=== PATIENT | female | born 1965 | race African-American/Black ===

== ENCOUNTER 2020-06-28 00:50 | IRF | payer OTHER, SELFPAY ==
[2020-06-28] VITALS (7 sets, daily range): BP systolic 109–143; BP diastolic 47–82; PULSE 72–84; RESP 16–20; TEMP 36.3–37.2; O2SAT 96–100; BMI 36.8
--- NOTE | ~2020-06-28 | CT_ITS ---
EXAMINATION: CT thoracic spine wo con DATE: 07/03/2020 19:14 INDICATION: Back pain after fall. TECHNIQUE: Computed tomography (CT) of the thoracic spine was performed without intravenous contrast. The dose-length product was 1200.52 mGy-cm. Automated exposure control and iterative reconstruction technique were employed. COMPARISON: None FINDINGS: Normal thoracic alignment. Mild thoracic spondylosis. No acute fracture, subluxation or dis location. Visualized lung parenchyma is unremarkable. No paraspinal soft tissue abnormality. Elevated right diaphragm. IMPRESSION: 1. No acute abnormality of the thoracic spine. Reviewed, dictated and finalized at location A.
--- NOTE | ~2020-06-28 | CT_ITS ---
EXAMINATION: CT brain wo con DATE: 07/03/2020 08:09 INDICATION: Headache. TECHNIQUE: Computed tomography (CT) of the head was performed without intravenous contrast. The mA wa s adjusted according to patient size. Iterative reconstruction technique was employed. The dose-lengt h product was 605.33 mGy-cm. COMPARISON: None FINDINGS: There is an old infarct in right caudate nucleus. There is an infarct in superior left cere bellum. There are scattered areas of low attenuation in the cerebral white matter. There is no intrac ranial hemorrhage or abnormal mass lesion. The ventricles are normal in size. There is mild mucosal t hickening in the ethmoid sinuses. The orbits are normal. The mastoid air cells are normal. IMPRESSION: 1. Age-indeterminate infarct in superior left cerebellum. 2. Old infarct in right caudate nucleus. 3. Moderate nonspecific cerebral white matter disease, which likely represents chronic small vessel i schemic disease. Reviewed, dictated and finalized at location B. IMPRESSION: 1. Age-indeterminate infarct in superior left cerebellum. 2. Old infarct in right caudate nucleus. 3. Moderate nonspecific cerebral white matter disease, which likely represents chronic small vessel ischemic disease.
--- NOTE | 2020-06-28 01:21 | ADMGEN ---
This patient, Elizabeth De La Rosa, was admitted to [facility] Room 221-02. Patient/family oriented to hospital policies and general routines including ID bracelet, bed and alarms, visiting hours, pain management, procedures, bathroom and other care routines, personal items, smoking policy, room service/diet, and visiting hours. Valuables list has been completed. Information on how to activate the Rapid Response Team has been discussed. Patient/Family are encouraged to report perceived risks to care and to ask questions if they do not understand what they are told or what they should do.
[2020-06-28 06:45] LABS: Glucose Point of Care 246 (65-105)
[2020-06-28] MEDS: POTASSIUM CHLORIDE 10 MEQ TABLET.ER PO (07:50)
[2020-06-28] MEDS: amLODIPine BESYLATE 5 MG TABLET 10 MG PO (07:50)
[2020-06-28] MEDS: ASPIRIN 325 MG ENTERIC TABLET PO (07:51)
[2020-06-28] MEDS: carvediloL 6.25 MG TABLET PO ×2 (07:51→21:07)
[2020-06-28] MEDS: CHLORTHALIDONE 25 MG TABLET PO (07:52)
[2020-06-28] MEDS: lisinopriL 10 MG TABLET PO ×2 (07:52→16:50)
[2020-06-28] MEDS: MAGNESIUM OXIDE 400 MG TABLET PO (07:52)
[2020-06-28] MEDS: FLUoxetine HCL 20 MG CAPSULE PO (07:52)
[2020-06-28] MEDS: INSULIN ASPART (*BKC) 100 UNITS/ML 10 UNITS SUB-Q ×3 (07:54→16:56)
[2020-06-28 08:06] LABS: Basophils Percent Auto 0.5 % (0.2-1.2); Eosinophils Absolute Auto 0.1 K/mm3 (0-0.3); Eosinophils Percent Auto 1.5 % (0-4.4); Hematocrit 42.7 % (37.0-47.0); Hemoglobin 14.3 g/dL (12.0-15.0); Immature Granulocyte Absolute 0.02 K/mm3 (0.00-0.031); Immature Granulocyte Percent A 0.2 % (0-0.5); Lymphocytes Absolute Auto 2.44 K/mm3 (0.9-3.2); Lymphocytes Percent Auto 27.6 % (18.3-44.2); Mean Corpuscular HGB Conc 33.5 g/dl (32-36); Mean Corpuscular Hemoglobin 27.1 pg (26-34); Mean Corpuscular Volume 80.9 fl (80-100); Mean Platelet Volume 10.7 fl (7.4-10.4); Monocytes Absolute Auto 1.1 K/mm3 (0.1-0.6); Monocytes Percent Auto 11.9 % (2.6-8.5); Neutrophils Absolute Auto 5.2 K/mm3 (1.3-6.7); Neutrophils Percent Auto 58.3 % (45.5-73.1); Platelet Count Result 341 k/mm3 (150-375); Red Blood Count 5.28 M/mm3 (4.2-5.4); Red Cell Distribution Width 13.6 % (11.5-14.5); White Blood Count 8.8 K/mm3 (4.5-10.0)
[2020-06-28 08:42] LABS: Anion Gap 8 mmol/L (8-16); Blood Urea Nitrogen 16 mg/dL (7-17); Calcium 9.1 mg/dL (8.4-10.2); Carbon Dioxide 30 mmol/L (22-30); Chloride 96 mmol/L (98-107); Cholesterol 194 mg/dL (0-200); Estimated CRCL calculation 115 ml/min; Estimated Glomerular Filt Rate > 60; Glucose 255 mg/dL (65-105); HDL Direct 40 mg/dL; Potassium 3.2 mmol/L (3.4-5.0); Sodium 134 mmol/L (137-145); Triglycerides 138 mg/dL (<150)
[2020-06-28 08:56] LABS: LDL Cholesterol Direct 118 mg/dL
[2020-06-28 09:22] LABS: Hemoglobin A1C 9.3 % (<5.7)
--- NOTE | 2020-06-28 12:30 | WPDREHABHP ---
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 The patient is a 54-year-old right-handed woman with a past medical history of hypertension, hyperlipidemia, and stroke along with migraine headaches which who presented to [facility] June 23, 2020 with persistent dizziness nausea and generalized weakness. The patient reported developing extreme dizziness at around 1:30 a.m. in the morning. She went back to sleep well later woke up and was unable to tolerate oral medication and ended up with an episode of emesis. Her symptoms not improve and EMS was called. EMS reported a blood pressure of 20 30/110. Rather 230 / 110. MRI of the brain demonstrated nonhemorrhagic a large left superior cerebellar artery distribution acute /recent infarction. No significant mass effect on the 4th ventricle, small right parietal acute /recent nonhemorrhagic infarction and subacute to early chronic right frontal periventricular small infarction. Neurology was consulted the recommended JUANA and 30 day event monitor upon discharge to continue aspirin and statin. JUANA showed an ejection fraction of 55 to 60% with no thrombus, shunt or cardiac source of embolism. The patient is continue the aspirin atorvastatin as well as oral antihypertensive. Physical examination conditions reveal impaired balance decreased gross motor control decreased safety awareness and the bilateral weakness. The patient passed her swallowing study and is on regular consistency diet. The hospitalization was significant for hypertensive crisis, stroke, hypertensive encephalopathy, vertigo, and hyperglycemia. She is currently awake and alert x3 and mental status has improved as per not only the patient but also the present at the time the interview The patient has not traveled to an area of pandemic of COVID she has not been sick she does not have any upper LEs by ismael symptoms to suggest even remote possibility of having had COVID-19 Therapy was initiated at the acute care facility and the patient transferred to us from [facility] on June 27, 2020 on FALLS OR SURGERIES: The patient has had no major surgeries in the 100 days prior to admission. They had no falls in the past year. They had no falls with injury in the past year. PAST MEDICAL HISTORY: allergic rhinitis, hay fever, hyperlipidemia, hypertension, endometriosis, CVA, headaches, migraine type headaches, anemia, diabetes mellitus and obesity PAST SURGICAL HISTORY: a D&C in 2007 SOCIAL HISTORY: patient is and the of long time is present at the time of the interview. The patient works at a home. Used to work for the [employer] and has retired from there. The patient imbibes alcohol only occasionally. Patient is a nonsmoker. She lives with her in a 2 story home with 2 steps to enter. The bedroom / bathroom or on the 2nd level with approximately 13 steps to the 2nd floor level. The patient was completely independent prior with no assistive device and works full-time in a home. The patient is available to assist her following rehab if necessary. FAMILY HISTORY: Multiple first-degree relatives with heart disease and hypertension PRIOR LEVEL OF FUNCTION: Eating was INDEPENDENT Oral Care was INDEPENDENT Toileting Hygiene was INDEPENDENT Shower/Bathing was INDEPENDENT Upper Body Dressing was INDEPENDENT Lower Body Dressing was INDEPENDENT Donning/Olga Footwear was INDEPENDENT Rolling Left and Right was INDEPENDENT Sit to Lying was INDEPENDENT
[2020-06-28 12:33] LABS: Glucose Point of Care 334 (65-105)
[2020-06-28] MEDS: INSULIN GLARGINE (*BKC) 100 UNITS/ML 35 UNITS SUB-Q (18:09)
[2020-06-28 18:16] LABS: Glucose Point of Care 333 (65-105)
[2020-06-28] MEDS: ATORVASTATIN 40 MG TABLET PO (21:08)
[2020-06-28 21:46] LABS: Glucose Point of Care 241 (65-105)
[2020-06-29 06:00] VITALS: BP 109/52; PULSE 81; RESP 20; TEMP 37; O2SAT 100
[2020-06-29 06:30] LABS: Glucose Point of Care 240 (65-105)
[2020-06-29] MEDS: POTASSIUM CHLORIDE 10 MEQ TABLET.ER PO (08:45)
[2020-06-29] MEDS: ASPIRIN 325 MG ENTERIC TABLET PO (08:46)
[2020-06-29] MEDS: lisinopriL 10 MG TABLET PO ×2 (08:46→18:25)
[2020-06-29] MEDS: CHLORTHALIDONE 25 MG TABLET PO (08:46)
[2020-06-29] MEDS: FLUoxetine HCL 20 MG CAPSULE PO (08:46)
[2020-06-29] MEDS: MAGNESIUM OXIDE 400 MG TABLET PO (08:46)
[2020-06-29 08:47] VITALS: PULSE 92
[2020-06-29] MEDS: carvediloL 6.25 MG TABLET PO ×2 (08:47→21:02)
[2020-06-29] MEDS: amLODIPine BESYLATE 5 MG TABLET 10 MG PO (08:47)
[2020-06-29] MEDS: INSULIN ASPART (*BKC) 100 UNITS/ML 10 UNITS SUB-Q ×3 (08:48→18:24)
[2020-06-29 12:35] LABS: Glucose Point of Care 247 (65-105)
[2020-06-29 14:00] VITALS: BP 127/64; PULSE 84; RESP 20; TEMP 37; O2SAT 100
--- NOTE | 2020-06-29 17:46 | WPDNEURORHBP ---
Subjective Date/time seen: 06/29/20 17:46 Interval history: this 54-year-old woman is here with the large left cerebellar stroke along with the other stroke bilaterally she is improving overall denies any headache nausea vomiting chest pain shortness of breath fever chills sore throat Patient's initial lab revealed relatively low potassium at 3.2 she is on potassium supplementation will check her BMP tomorrow also and potassium is still low we will increase the potassium supplementation patient's Accu-Cheks are running high up to over 200s and upper 200s Review of Systems Review of Systems: All systems reviewed & are unremarkable except as noted in HPI and below Functional Status Ambulation Ability Ability to Ambulate 10 Feet: Moderate Assistance X 1 Ambulation Assistive Devices: Walker, Wheeled Exam Const: General: comfortable and no acute distress HENMT: General nose exam: Normal nares present Mouth: Yes moist mucous membranes Eyes: General: appearance normal, both eyes and all related structures Neck: Neck: supple and no JVD Resp: Effort & Inspection: normal respiratory effort Auscultation: clear to auscultation bilaterally Cardio: Rate: regular rate Rhythm: regular rhythm GI: GI Palp: Yes Soft to palpation Auscultation: normal bowel sounds Skin: General skin exam: normal color and no rashes or lesions noted Neuro: Other: patient is awake alert well oriented with relatively slower speech but able to follow all commands well improving overall not any distress making progress Extrem: General: normal to inspection Psych: Mental Status: mental status grossly normal Objective Data Vital Signs Vital Signs: Vital Signs - 24 hr 06/28/20 20:35 06/28/20 21:07 06/28/20 22:00 Temperature 37.2 C Pulse Rate 84 80 84 Respiratory Rate 20 20 Blood Pressure 143/82 H Pulse Oximetry 96 96 06/29/20 06:00 06/29/20 08:47 06/29/20 14:00 Temperature 37.0 C 37.0 C Pulse Rate 81 92 84 Respiratory Rate 20 20 Blood Pressure 109/52 L 127/64 Pulse Oximetry 100 100 Intake/Output Intake/Output: Intake & Output 06/26/20 06/27/20 06/28/20 06/29/20 23:59 23:59 23:59 23:59 Intake Total 680 480 Balance 680 480 Meds/Results Medications: Active Medications Generic Name Dose Route Start Last Admin Trade Name Freq PRN Reason Stop Dose Admin Acetaminophen 650 mg 06/28/20 02:11 Tylenol Tablet PO Q6H PRN Mild Pain (Scale Score 1-4) Amlodipine Besylate 10 mg 06/28/20 09:00 06/29/20 08:47 Norvasc PO 10 mg DAILY FELIPE Administration Aspirin 325 mg 06/28/20 09:00 06/29/20 08:46 Aspirin Ec PO 325 mg DAILY FELIPE Administration Atorvastatin Calcium 40 mg 06/28/20 21:00 06/28/20 21:08 Lipitor PO 40 mg HS FELIPE Administration Carvedilol 6.25 mg 06/28/20 09:00 06/29/20 08:47 Coreg PO 6.25 mg Q12HR FELIPE Administration Chlorthalidone 25 mg 06/28/20 09:00 06/29/20 08:46 Hygroton PO 25 mg DAILY FELIPE Administration Dextrose 12.5 gm 06/28/20 02:14 Dextrose 50% Syringe IV PUSH PRN PRN Hypoglycemia Protocol Fluoxetine HCl 20 mg 06/28/20 09:00 06/29/20 08:46 Prozac PO 20 mg DAILY FELIPE Administration Glucagon 1 mg 06/28/20 02:14 Glucagon For Inj IM PRN PRN Hypoglycemia Protocol Glucose 15 gm 06/28/20 02:14 Glutose 15 PO PRN PRN Hypoglycemia Protocol Hydralazine HCl 25 mg 06/28/20 02:11 Apresoline Tablet PO Q6H PRN Hypertension Dextrose 1,000 mls @ 100 mls/hr 06/28/20 02:14 Dextrose 5% 1,000 Ml IVPB PRN PRN Hypoglycemia Protocol Insulin Aspart 10 units 06/28/20 08:00 06/29/20 12:18 Novolog SUB-Q 10 units TIDWM FELIPE Administration Insulin Glargine 35 units 06/28/20 18:00 06/28/20 18:09 Lantus SUB-Q 35 units QPM FELIPE Administration Lisinopril 10 mg 06/28/20 09:00 06/29/20 08:46 Prinivil PO 10 mg BID
[2020-06-29] MEDS: INSULIN GLARGINE (*BKC) 100 UNITS/ML 40 UNITS SUB-Q (18:24)
[2020-06-29 18:45] LABS: Glucose Point of Care 405 (65-105)
[2020-06-29 21:02] VITALS: PULSE 80
[2020-06-29] MEDS: ATORVASTATIN 40 MG TABLET PO (21:03)
[2020-06-29 22:00] VITALS: BP 138/67; PULSE 82; RESP 18; TEMP 37; O2SAT 100
[2020-06-29 22:31] LABS: Glucose Point of Care 298 (65-105)
[2020-06-30 05:12] LABS: Anion Gap 7 mmol/L (8-16); Blood Urea Nitrogen 17 mg/dL (7-17); Carbon Dioxide 31 mmol/L (22-30); Chloride 96 mmol/L (98-107); Estimated CRCL calculation 115 ml/min; Estimated Glomerular Filt Rate > 60; Glucose 253 mg/dL (65-105); Potassium 3.2 mmol/L (3.4-5.0); Sodium 134 mmol/L (137-145)
[2020-06-30 06:00] VITALS: BP 141/81; PULSE 81; RESP 18; TEMP 36.5; O2SAT 98
[2020-06-30 06:51] LABS: Glucose Point of Care 253 (65-105)
[2020-06-30] MEDS: INSULIN ASPART (*BKC) 100 UNITS/ML 10 UNITS SUB-Q ×3 (09:35→17:04)
[2020-06-30] MEDS: amLODIPine BESYLATE 5 MG TABLET 10 MG PO (09:37)
[2020-06-30] MEDS: POTASSIUM CHLORIDE 10 MEQ TABLET.ER PO (09:37)
[2020-06-30 09:38] VITALS: PULSE 82
[2020-06-30] MEDS: FLUoxetine HCL 20 MG CAPSULE PO (09:38)
[2020-06-30] MEDS: lisinopriL 10 MG TABLET PO ×2 (09:38→17:03)
[2020-06-30] MEDS: carvediloL 6.25 MG TABLET PO ×2 (09:38→20:29)
[2020-06-30] MEDS: CHLORTHALIDONE 25 MG TABLET PO (09:38)
[2020-06-30] MEDS: ASPIRIN 325 MG ENTERIC TABLET PO (09:38)
[2020-06-30] MEDS: MAGNESIUM OXIDE 400 MG TABLET PO (09:38)
--- NOTE | 2020-06-30 10:07 | RPD ---
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 Comorbidities include hypertensive crisis, hyperlipidemia, vertigo, impaired balance, diabetes mellitus with hyperglycemia. The complexity of the patient's medical management, nursing, and therapy needs require an inpatient rehab hospital stay with a physician-led interdisciplinary team approach. The patient?s needs will be best met in an intensive program vs. at a lower level of care. The patient requires physician services for neurology services, medical oversight, and coordination of care. The patient needs physician monitoring and treatment of uncontrolled hypertension, diabetes mellitus with hyperglycemia, monitoring for adverse reactions to new medications, monitoring for infection, and pain control. The patient requires nursing services for frequent neuro checks, anticoagulation therapy, medication management and education, pressure relief and skin care management, monitoring of labs, diabetes management and education, and fall/safety precautions. Deficits include:ADLs, Balance, Endurance, Family Training/Education, Mobility, Pain Management, ROM, Safety, Strength, and Transfers Supervisor [employer]/Case Management for: Discharge Planning and Patient/Family Counseling Physical Therapy: 5 days per week for 75 minutes. Treatments may include: Therapeutic Exercise, Gait Training, Neuromuscular Re-education, Transfer Training, Community Reintegration, Bed Mobility, Patient/Family Education, Wheelchair Mobility Group Therapy/Concurrent Therapy Rationales: -Improve attention span during functional activities in a distracted environment. -Enhance problem solving and/or adequate judgment skills during functional activities in a distracted environment. -Promote increased safety awareness in a distracted environment to reduce fall risk with functional tasks, transfers, and ambulation to allow a more safe, self-sufficient return to the home environment. -Improve dynamic balance skills to promote safety and independence with functional activities in a distracted environment for maximum gain. Occupational Therapy: 5 days per week for 75 minutes. Treatments may include: Therapeutic Exercise, Therapeutic Activity, Cognitive Training, Self-Care Transfer Training, Community Reintegration, Home Management, Patient/Family Education, Wheelchair Mobility Training, Energy Conservation Training Group Therapy/Concurrent Therapy Rationales: -Allow therapist to observe and teach generalization and carry-over of skills learned in individual therapy. -Enhance problem solving and sequencing skills during therapeutic activities in a distracted environment. -Promote increased safety awareness in a realistic setting to reduce fall risk with functional tasks due to visual and verbal distractions. -Increase functional level with ADLs, ADL transfers and use of adaptive equipment through therapeutic activities with others while promoting safety to allow a more safe, self-sufficient return home. Speech Therapy: 5 days per week for 30 minutes. Treatments may include: Dysphasia Therapy, Speech/Language/Communication Therapy, Cognitive Training, Patient/Family Education Group Therapy/Concurrent Therapy - Rationale: -Allow therapist to observe and teach generalization and carry-over of skills learned in individual therapy. -Improve comprehension skills with complex or abstract ideas through discussion in a realistic setting. -Enhance problem solving skills with complex issues during activities in a distracted environment. -Promote increased memory skills and concentration in a distracted environment for a safe transition home. -Improve attention and focus with language/communication skills in a realistic and supportive therapeutic setting. -Allow for practice of e
--- NOTE | 2020-06-30 10:24 | WPDNEURORHBP ---
Subjective Date/time seen: 06/30/20 52 years old lady admitted with left cerebellar stroke along with the hemispherical stroke bilaterally has no specific complaints 10:24 BMP results at this stage not available Review of Systems Review of Systems: All systems reviewed & are unremarkable except as noted in HPI and below Functional Status Ambulation Ability Ability to Ambulate 10 Feet: Moderate Assistance X 1 Ambulation Assistive Devices: Walker, Wheeled Exam Narrative: Exam Narrative: examination reveals her to be awake alert cooperative head normocephalic ears nose throat examination normal neck is supple with no cervical bruits or thyromegaly no lymphadenopathy heart regular with no murmur lungs clear to auscultation no rhonchi or crepitation abdomen soft normal bowel sounds extremities normal neurological is she is awake alert somewhat slow speech but follows all the commands and no other deficit Objective Data Vital Signs Vital Signs: Vital Signs - 24 hr 06/29/20 14:00 06/29/20 21:02 06/29/20 22:00 Temperature 37.0 C 37.0 C Pulse Rate 84 80 82 Respiratory Rate 20 18 Blood Pressure 127/64 138/67 Pulse Oximetry 100 100 06/30/20 06:00 06/30/20 09:38 Temperature 36.5 C Pulse Rate 81 82 Respiratory Rate 18 Blood Pressure 141/81 H Pulse Oximetry 98 Intake/Output Intake/Output: Intake & Output 06/27/20 06/28/20 06/29/20 06/30/20 23:59 23:59 23:59 23:59 Intake Total 680 720 240 Balance 680 720 240 Meds/Results Medications: Active Medications Generic Name Dose Route Start Last Admin Trade Name Natanaelq PRN Reason Stop Dose Admin Acetaminophen 650 mg 06/28/20 02:11 Tylenol Tablet PO Q6H PRN Mild Pain (Scale Score 1-4) Amlodipine Besylate 10 mg 06/28/20 09:00 06/30/20 09:37 Norvasc PO 10 mg DAILY FELIPE Administration Aspirin 325 mg 06/28/20 09:00 06/30/20 09:38 Aspirin Ec PO 325 mg DAILY FELIPE Administration Atorvastatin Calcium 40 mg 06/28/20 21:00 06/29/20 21:03 Lipitor PO 40 mg HS FELIPE Administration Carvedilol 6.25 mg 06/28/20 09:00 06/30/20 09:38 Coreg PO 6.25 mg Q12HR FELIPE Administration Chlorthalidone 25 mg 06/28/20 09:00 06/30/20 09:38 Hygroton PO 25 mg DAILY FELIPE Administration Dextrose 12.5 gm 06/28/20 02:14 Dextrose 50% Syringe IV PUSH PRN PRN Hypoglycemia Protocol Fluoxetine HCl 20 mg 06/28/20 09:00 06/30/20 09:38 Prozac PO 20 mg DAILY FELIPE Administration Glucagon 1 mg 06/28/20 02:14 Glucagon For Inj IM PRN PRN Hypoglycemia Protocol Glucose 15 gm 06/28/20 02:14 Glutose 15 PO PRN PRN Hypoglycemia Protocol Hydralazine HCl 25 mg 06/28/20 02:11 Apresoline Tablet PO Q6H PRN Hypertension Dextrose 1,000 mls @ 100 mls/hr 06/28/20 02:14 Dextrose 5% 1,000 Ml IVPB PRN PRN Hypoglycemia Protocol Insulin Aspart 10 units 06/28/20 08:00 06/30/20 09:35 Novolog SUB-Q 10 units TIDWM FELIPE Administration Insulin Glargine 40 units 06/29/20 18:00 06/29/20 18:24 Lantus SUB-Q 40 units QPM FELIPE Administration Lisinopril 10 mg 06/28/20 09:00 06/30/20 09:38 Prinivil PO 10 mg BID FELIPE Administration Magnesium Oxide 400 mg 06/28/20 09:00 06/30/20 09:38 Mag-Ox PO 400 mg DAILY FELIPE Administration Meclizine HCl 25 mg 06/28/20 02:11 Antivert PO Q6H PRN Dizziness Melatonin 3 mg 06/29/20 21:25 06/30/20 06:50 Melatonin PO Not Given HS [facility] Potassium Chloride 10 meq 06/28/20 08:00 06/30/20 09:37 Kcl Tablet PO 10 meq DAILY@0800 FELIPE Administration Labs Labs: Laboratory Results - last 24 hr 06/29/20 06/29/20 06/29/20 12:17 18:20 21:24 Sodium Potassium Chloride Carbon Dioxide Anion Gap BUN Creatinine Estim Creat Clear Calc Estimated GFR Glucose POC Capillary Glucose 247 H 405 H 298 H Calcium
[2020-06-30 12:15] LABS: Glucose Point of Care 332 (65-105)
[2020-06-30 12:37] VITALS: BMI 36.8
[2020-06-30 14:00] VITALS: BP 118/53; PULSE 78; RESP 16; TEMP 36.9; O2SAT 99
--- NOTE | 2020-06-30 14:33 | PCNSR ---
On 06/30/20, the student, César Govea, provided care and completed [employer] documentation on this patient. I have reviewed the student's documentation and agree with the findings.
[2020-06-30 17:31] LABS: Glucose Point of Care 239 (65-105)
[2020-06-30] MEDS: INSULIN GLARGINE (*BKC) 100 UNITS/ML 40 UNITS SUB-Q (18:22)
[2020-06-30 20:01] LABS: Glucose Point of Care 288 (65-105)
[2020-06-30 20:29] VITALS: PULSE 80
[2020-06-30] MEDS: MELATONIN 3 MG TABLET PO (20:29)
[2020-06-30] MEDS: ATORVASTATIN 40 MG TABLET PO (20:29)
[2020-06-30 20:58] VITALS: BP 94/32; PULSE 82; RESP 18; TEMP 37.1; O2SAT 100
[2020-06-30 22:00] VITALS: BP 106/50
[2020-07-01 06:00] VITALS: BP 128/69; PULSE 84; RESP 20; TEMP 36.6; O2SAT 97
[2020-07-01 06:48] LABS: Glucose Point of Care 213 (65-105)
[2020-07-01 09:48] VITALS: PULSE 69
[2020-07-01] MEDS: ASPIRIN 325 MG ENTERIC TABLET PO (09:48)
[2020-07-01] MEDS: POTASSIUM CHLORIDE 10 MEQ TABLET.ER PO (09:48)
[2020-07-01] MEDS: amLODIPine BESYLATE 5 MG TABLET 10 MG PO (09:48)
[2020-07-01] MEDS: carvediloL 6.25 MG TABLET PO ×2 (09:48→21:54)
[2020-07-01] MEDS: lisinopriL 10 MG TABLET PO ×2 (09:49→18:34)
[2020-07-01] MEDS: MAGNESIUM OXIDE 400 MG TABLET PO (09:49)
[2020-07-01] MEDS: FLUoxetine HCL 20 MG CAPSULE PO (09:49)
[2020-07-01] MEDS: CHLORTHALIDONE 25 MG TABLET PO (09:49)
[2020-07-01] MEDS: INSULIN ASPART (*BKC) 100 UNITS/ML 12 UNITS SUB-Q ×3 (10:15→18:32)
--- NOTE | 2020-07-01 12:21 | WPDNEURORHBP ---
Subjective Date/time seen: 07/01/20 12:21 Interval history: this 54-year-old woman is here after having had a rather large left cerebellar infarction and also has evidence of the right hemispheric infarction so she has the left-sided cerebellar dysfunction and likewise she has a left-sided hemiparesis related to right hemispheric stroke The patient is progressing in the therapy denies any headache nausea vomiting chest pain shortness of breath fever chills sore throat her diabetes is not well controlled and we have adjusted the Lantus and the aspart Review of Systems Review of Systems: All systems reviewed & are unremarkable except as noted in HPI and below Functional Status Ambulation Ability Ability to Ambulate 10 Feet: Maximum Assistance X 1 Ambulation Assistive Devices: Walker, Wheeled Exam Const: General: comfortable and no acute distress HENMT: General nose exam: Normal nares present Mouth: Yes moist mucous membranes Eyes: General: appearance normal, both eyes and all related structures Neck: Neck: supple and no JVD Resp: Effort & Inspection: normal respiratory effort Auscultation: clear to auscultation bilaterally Cardio: Rate: regular rate Rhythm: regular rhythm GI: GI Palp: Yes Soft to palpation Auscultation: normal bowel sounds Skin: General skin exam: normal color and no rashes or lesions noted Neuro: Other: the patient is awake and alert oriented times 3 with left-sided cerebellar deficit and left-sided hemiparesis her speech is getting better she is talking better and progressive [place] the rehab fairly well Extrem: General: normal to inspection Psych: Mental Status: mental status grossly normal Other: mild memory deficit Objective Data Vital Signs Vital Signs: Vital Signs - 24 hr 06/30/20 14:00 06/30/20 20:29 06/30/20 20:58 Temperature 36.9 C 37.1 C Pulse Rate 78 80 82 Respiratory Rate 16 18 Blood Pressure 118/53 L 94/32 L Pulse Oximetry 99 100 06/30/20 22:00 07/01/20 06:00 07/01/20 09:48 Temperature 36.6 C Pulse Rate 84 69 Respiratory Rate 20 Blood Pressure 106/50 L 128/69 Pulse Oximetry 97 Intake/Output Intake/Output: Intake & Output 06/28/20 06/29/20 06/30/20 07/01/20 23:59 23:59 23:59 23:59 Intake Total 680 720 960 Balance 680 720 960 Meds/Results Medications: Active Medications Generic Name Dose Route Start Last Admin Trade Name Freq PRN Reason Stop Dose Admin Acetaminophen 650 mg 06/28/20 02:11 Tylenol Tablet PO Q6H PRN Mild Pain (Scale Score 1-4) Amlodipine Besylate 10 mg 06/28/20 09:00 07/01/20 09:48 Norvasc PO 10 mg DAILY FELIPE Administration Aspirin 325 mg 06/28/20 09:00 07/01/20 09:48 Aspirin Ec PO 325 mg DAILY FELIPE Administration Atorvastatin Calcium 40 mg 06/28/20 21:00 06/30/20 20:29 Lipitor PO 40 mg HS FELIPE Administration Carvedilol 6.25 mg 06/28/20 09:00 07/01/20 09:48 Coreg PO 6.25 mg Q12HR FELIPE Administration Chlorthalidone 25 mg 06/28/20 09:00 07/01/20 09:49 Hygroton PO 25 mg DAILY FELIPE Administration Dextrose 12.5 gm 06/28/20 02:14 Dextrose 50% Syringe IV PUSH PRN PRN Hypoglycemia Protocol Fluoxetine HCl 20 mg 06/28/20 09:00 07/01/20 09:49 Prozac PO 20 mg DAILY FELIPE Administration Glucagon 1 mg 06/28/20 02:14 Glucagon For Inj IM PRN PRN Hypoglycemia Protocol Glucose 15 gm 06/28/20 02:14 Glutose 15 PO PRN PRN Hypoglycemia Protocol Hydralazine HCl 25 mg 06/28/20 02:11 Apresoline Tablet PO Q6H PRN Hypertension Dextrose 1,000 mls @ 100 mls/hr 06/28/20 02:14 Dextrose 5% 1,000 Ml IVPB PRN PRN Hypoglycemia Protocol Insulin Aspart 12 units 07/01/20 12:00 Novolog SUB-Q TIDWM [facility] Insulin Glargine 45 units 07/01/20 18:00 Lantus SUB-Q QPM [facility] Lisinopril 10 mg 06/28/20 09:00 07/01/20 09:49 Prinivil PO 10 mg BID
[2020-07-01 12:34] LABS: Glucose Point of Care 307 (65-105)
[2020-07-01 14:00] VITALS: BP 122/61; PULSE 80; RESP 18; TEMP 36.8; O2SAT 99
[2020-07-01 16:58] LABS: Glucose Point of Care 300 (65-105)
[2020-07-01] MEDS: INSULIN GLARGINE (*BKC) 100 UNITS/ML 45 UNITS SUB-Q (18:37)
[2020-07-01 21:51] VITALS: BP 140/80; PULSE 89; RESP 18; TEMP 36.2; O2SAT 97
[2020-07-01 21:54] VITALS: PULSE 89
[2020-07-01] MEDS: ATORVASTATIN 40 MG TABLET PO (21:54)
[2020-07-01] MEDS: MELATONIN 3 MG TABLET PO (21:56)
[2020-07-01 22:03] LABS: Glucose Point of Care 280 (65-105)
[2020-07-02 05:39] VITALS: BP 110/72; PULSE 89; RESP 18; TEMP 35.3; O2SAT 100
[2020-07-02 06:48] LABS: Glucose Point of Care 263 (65-105)
[2020-07-02] MEDS: INSULIN ASPART (*BKC) 100 UNITS/ML 12 UNITS SUB-Q ×3 (07:23→17:48)
[2020-07-02 09:22] VITALS: PULSE 84
[2020-07-02] MEDS: ASPIRIN 325 MG ENTERIC TABLET PO (09:22)
[2020-07-02] MEDS: carvediloL 6.25 MG TABLET PO ×2 (09:22→20:36)
[2020-07-02] MEDS: amLODIPine BESYLATE 5 MG TABLET 10 MG PO (09:22)
[2020-07-02] MEDS: POTASSIUM CHLORIDE 10 MEQ TABLET.ER PO (09:22)
[2020-07-02] MEDS: lisinopriL 10 MG TABLET PO ×2 (09:23→17:47)
[2020-07-02] MEDS: FLUoxetine HCL 20 MG CAPSULE PO (09:23)
[2020-07-02] MEDS: CHLORTHALIDONE 25 MG TABLET PO (09:23)
[2020-07-02] MEDS: MAGNESIUM OXIDE 400 MG TABLET PO (09:23)
[2020-07-02 12:15] LABS: Glucose Point of Care 251 (65-105)
[2020-07-02 14:00] VITALS: BP 120/59; PULSE 80; RESP 20; TEMP 36.4; O2SAT 100
--- NOTE | 2020-07-02 14:29 | WPDNEURORHBP ---
Subjective Date/time seen: 07/02/20 14:29 Interval history: this pleasant 54-year-old woman is here after having had rather large left cerebellar infarction and also has a right hemispheric infarction responsible for the cerebellar signs on the left side and also left-sided hemiparesis she is doing fairly well making progress no neurological symptoms more than what she already has no new headache nausea vomiting chest pain shortness of breath fever chills sore throat Review of Systems Review of Systems: All systems reviewed & are unremarkable except as noted in HPI and below Functional Status Ambulation Ability Ability to Ambulate 10 Feet: Maximum Assistance X 1 Ambulation Assistive Devices: Walker, Wheeled Exam Const: General: comfortable and no acute distress HENMT: General nose exam: Normal nares present Mouth: Yes moist mucous membranes Eyes: General: appearance normal, both eyes and all related structures Neck: Neck: supple and no JVD Resp: Effort & Inspection: normal respiratory effort Auscultation: clear to auscultation bilaterally Cardio: Rate: regular rate Rhythm: regular rhythm GI: GI Palp: Yes Soft to palpation Auscultation: normal bowel sounds Skin: General skin exam: normal color and no rashes or lesions noted Neuro: Other: the patient is awake and alert well oriented with improving left-sided cerebellar signs and left-sided hemiparesis Extrem: General: normal to inspection Psych: Mental Status: mental status grossly normal Objective Data Vital Signs Vital Signs: Vital Signs - 24 hr 07/01/20 21:51 07/01/20 21:54 07/02/20 05:39 Temperature 36.2 C L 35.3 C L Pulse Rate 89 89 89 Respiratory Rate 18 18 Blood Pressure 140/80 110/72 Pulse Oximetry 97 100 07/02/20 09:22 07/02/20 14:00 Temperature 36.4 C L Pulse Rate 84 80 Respiratory Rate 20 Blood Pressure 120/59 L Pulse Oximetry 100 Intake/Output Intake/Output: Intake & Output 06/29/20 06/30/20 07/01/20 07/02/20 23:59 23:59 23:59 23:59 Intake Total 720 960 720 480 Balance 720 960 720 480 Meds/Results Medications: Active Medications Generic Name Dose Route Start Last Admin Trade Name Freq PRN Reason Stop Dose Admin Acetaminophen 650 mg 06/28/20 02:11 Tylenol Tablet PO Q6H PRN Mild Pain (Scale Score 1-4) Amlodipine Besylate 10 mg 06/28/20 09:00 07/02/20 09:22 Norvasc PO 10 mg DAILY FELIPE Administration Aspirin 325 mg 06/28/20 09:00 07/02/20 09:22 Aspirin Ec PO 325 mg DAILY FELIPE Administration Atorvastatin Calcium 40 mg 06/28/20 21:00 07/01/20 21:54 Lipitor PO 40 mg HS FELIPE Administration Carvedilol 6.25 mg 06/28/20 09:00 07/02/20 09:22 Coreg PO 6.25 mg Q12HR FELIPE Administration Chlorthalidone 25 mg 06/28/20 09:00 07/02/20 09:23 Hygroton PO 25 mg DAILY FELIPE Administration Dextrose 12.5 gm 06/28/20 02:14 Dextrose 50% Syringe IV PUSH PRN PRN Hypoglycemia Protocol Fluoxetine HCl 20 mg 06/28/20 09:00 07/02/20 09:23 Prozac PO 20 mg DAILY FELIPE Administration Glucagon 1 mg 06/28/20 02:14 Glucagon For Inj IM PRN PRN Hypoglycemia Protocol Glucose 15 gm 06/28/20 02:14 Glutose 15 PO PRN PRN Hypoglycemia Protocol Hydralazine HCl 25 mg 06/28/20 02:11 Apresoline Tablet PO Q6H PRN Hypertension Dextrose 1,000 mls @ 100 mls/hr 06/28/20 02:14 Dextrose 5% 1,000 Ml IVPB PRN PRN Hypoglycemia Protocol Insulin Aspart 12 units 07/01/20 12:00 07/02/20 12:08 Novolog SUB-Q 12 units TIDWM FELIPE Administration Insulin Glargine 45 units 07/01/20 18:00 07/01/20 18:37 Lantus SUB-Q 45 units QPM FELIPE Administration Lisinopril 10 mg 06/28/20 09:00 07/02/20 09:23 Prinivil PO 10 mg BID FELIPE Administration Magnesium Oxide 400 mg 06/28/20 09:00 07/02/20 09:23 Mag-Ox PO 400 mg DAILY FELIPE Administration Meclizine
[2020-07-02 17:19] LABS: Glucose Point of Care 332 (65-105)
[2020-07-02] MEDS: INSULIN GLARGINE (*BKC) 100 UNITS/ML 45 UNITS SUB-Q (17:51)
[2020-07-02 20:36] VITALS: PULSE 80
[2020-07-02] MEDS: MELATONIN 3 MG TABLET PO (20:36)
[2020-07-02] MEDS: ATORVASTATIN 40 MG TABLET PO (20:39)
[2020-07-02 22:00] VITALS: BP 102/47; PULSE 79; RESP 20; TEMP 36.1; O2SAT 96
[2020-07-02 22:43] LABS: Glucose Point of Care 280 (65-105)
[2020-07-03] VITALS (7 sets, daily range): BP systolic 118–148; BP diastolic 49–82; PULSE 68–86; RESP 16–20; TEMP 36.1–36.6; O2SAT 97–100
[2020-07-03] MEDS: ACETAMINOPHEN 325 MG TABLET 650 MG PO ×2 (04:29→20:02)
[2020-07-03 07:16] LABS: Glucose Point of Care 255 (65-105)
--- NOTE | 2020-07-03 07:39 | PC.NURSE ---
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 Patient did wake up and stated she hit her head and has a headache. Dr Gilmore updated and received N.O. for stat CT without contrast. will continue to monitor.
[2020-07-03] MEDS: POTASSIUM CHLORIDE 10 MEQ TABLET.ER PO (10:00)
[2020-07-03] MEDS: FLUoxetine HCL 20 MG CAPSULE PO (10:01)
[2020-07-03] MEDS: CHLORTHALIDONE 25 MG TABLET PO (10:02)
[2020-07-03] MEDS: ASPIRIN 325 MG ENTERIC TABLET PO (10:02)
[2020-07-03] MEDS: amLODIPine BESYLATE 5 MG TABLET 10 MG PO (10:02)
[2020-07-03] MEDS: lisinopriL 10 MG TABLET PO ×2 (10:02→17:57)
[2020-07-03] MEDS: MAGNESIUM OXIDE 400 MG TABLET PO (10:03)
[2020-07-03] MEDS: INSULIN ASPART (*BKC) 100 UNITS/ML 12 UNITS SUB-Q (10:03)
[2020-07-03] MEDS: carvediloL 6.25 MG TABLET PO ×2 (10:04→19:59)
--- NOTE | 2020-07-03 11:39 | PC.NURSE ---
0800 PT STATES SHE HAS A HEADACE
--- NOTE | 2020-07-03 11:40 | PC.NURSE ---
1000 PT STATES THAT SHE HAS NEVER HAD A HEADACHE. PT STATES THAT I DON'T GET HEADACHES.
[2020-07-03 11:57] LABS: Glucose Point of Care 285 (65-105)
[2020-07-03] MEDS: INSULIN ASPART (*BKC) 100 UNITS/ML 15 UNITS SUB-Q ×2 (12:20→17:56)
[2020-07-03 17:46] LABS: Glucose Point of Care 245 (65-105)
[2020-07-03] MEDS: INSULIN GLARGINE (*BKC) 100 UNITS/ML 45 UNITS SUB-Q (17:57)
[2020-07-03] MEDS: ATORVASTATIN 40 MG TABLET PO (19:58)
[2020-07-03] MEDS: MELATONIN 3 MG TABLET PO (20:03)
[2020-07-03 22:05] LABS: Glucose Point of Care 336 (65-105)
[2020-07-04 05:46] VITALS: BP 131/74; PULSE 76; RESP 18; TEMP 36.3; O2SAT 100
[2020-07-04 06:44] LABS: Glucose Point of Care 231 (65-105)
[2020-07-04] MEDS: INSULIN ASPART (*BKC) 100 UNITS/ML 15 UNITS SUB-Q ×3 (09:53→17:44)
[2020-07-04] MEDS: amLODIPine BESYLATE 5 MG TABLET 10 MG PO (09:53)
[2020-07-04] MEDS: POTASSIUM CHLORIDE 10 MEQ TABLET.ER PO (09:53)
[2020-07-04 09:54] VITALS: PULSE 72
[2020-07-04] MEDS: carvediloL 6.25 MG TABLET PO ×2 (09:54→20:31)
[2020-07-04] MEDS: lisinopriL 10 MG TABLET PO ×2 (09:54→17:38)
[2020-07-04] MEDS: CHLORTHALIDONE 25 MG TABLET PO (09:54)
[2020-07-04] MEDS: FLUoxetine HCL 20 MG CAPSULE PO (09:54)
[2020-07-04] MEDS: ASPIRIN 325 MG ENTERIC TABLET PO (09:54)
[2020-07-04] MEDS: MAGNESIUM OXIDE 400 MG TABLET PO (09:55)
[2020-07-04] MEDS: ACETAMINOPHEN 325 MG TABLET 650 MG PO (09:56)
[2020-07-04 12:16] LABS: Glucose Point of Care 255 (65-105)
--- NOTE | 2020-07-04 13:13 | WPDNEURORHBP ---
Subjective Date/time seen: 07/04/20 13:13 Interval history: this 54-year-old was both examined yesterday and today she had fallen yesterday and was complaining of headache a CT brain was obtained which did not reveal any new findings particularly there was no hemorrhage she was also complaining of the thoracic spine pain and the CT scan of her thoracic spine does not show any acute fractures and nothing to suggest any compression fractures either she is much better today cooperating in the therapy denies any headache nausea vomiting chest pain or shortness of breath she was counseled that not to get up on her own and try to calm herself down which at times he becomes relatively anxious and try to do the things on her own Review of Systems Review of Systems: All systems reviewed & are unremarkable except as noted in HPI and below Functional Status Ambulation Ability Ability to Ambulate 10 Feet: Maximum Assistance X 1 Ambulation Assistive Devices: Walker, Wheeled Exam Const: General: comfortable and no acute distress HENMT: General nose exam: Normal nares present Mouth: Yes moist mucous membranes Eyes: General: appearance normal, both eyes and all related structures Neck: Neck: supple and no JVD Resp: Effort & Inspection: normal respiratory effort Auscultation: clear to auscultation bilaterally Cardio: Rate: regular rate Rhythm: regular rhythm GI: GI Palp: Yes Soft to palpation Auscultation: normal bowel sounds Skin: General skin exam: normal color and no rashes or lesions noted Neuro: Other: patient is awake alert will origin time place and person her left-sided neurological deficit both cerebral and cerebellar is improving Extrem: General: normal to inspection Psych: Mental Status: mental status grossly normal Objective Data Vital Signs Vital Signs: Vital Signs - 24 hr 07/03/20 14:00 07/03/20 19:59 07/03/20 22:00 Temperature 36.4 C 36.5 C Pulse Rate 76 78 86 Respiratory Rate 18 20 Blood Pressure 129/57 L 122/76 Pulse Oximetry 97 99 07/04/20 05:46 07/04/20 09:54 Temperature 36.3 C L Pulse Rate 76 72 Respiratory Rate 18 Blood Pressure 131/74 Pulse Oximetry 100 Intake/Output Intake/Output: Intake & Output 07/01/20 07/02/20 07/03/20 07/04/20 23:59 23:59 23:59 23:59 Intake Total 720 720 480 240 Balance 720 720 480 240 Meds/Results Medications: Active Medications Generic Name Dose Route Start Last Admin Trade Name Freq PRN Reason Stop Dose Admin Acetaminophen 650 mg 06/28/20 02:11 07/04/20 09:56 Tylenol Tablet PO 650 mg Q6H PRN Administration Mild Pain (Scale Score 1-4) Amlodipine Besylate 10 mg 06/28/20 09:00 07/04/20 09:53 Norvasc PO 10 mg DAILY FELIPE Administration Aspirin 325 mg 06/28/20 09:00 07/04/20 09:54 Aspirin Ec PO 325 mg DAILY FELIPE Administration Atorvastatin Calcium 40 mg 06/28/20 21:00 07/03/20 19:58 Lipitor PO 40 mg HS FELIPE Administration Carvedilol 6.25 mg 06/28/20 09:00 07/04/20 09:54 Coreg PO 6.25 mg Q12HR FELIPE Administration Chlorthalidone 25 mg 06/28/20 09:00 07/04/20 09:54 [place]gro[place] PO 25 mg DAILY FELIPE Administration Dextrose 12.5 gm 06/28/20 02:14 Dextrose 50% Syringe IV PUSH PRN PRN Hypoglycemia Protocol Fluoxetine HCl 20 mg 06/28/20 09:00 07/04/20 09:54 Prozac PO 20 mg DAILY FELIPE Administration Glucagon 1 mg 06/28/20 02:14 Glucagon For Inj IM PRN PRN Hypoglycemia Protocol Glucose 15 gm 06/28/20 02:14 Glutose 15 PO PRN PRN Hypoglycemia Protocol Hydralazine HCl 25 mg 06/28/20 02:11 Apresoline Tablet PO Q6H PRN Hypertension Dextrose 1,000 mls @ 100 mls/hr 06/28/20 02:14 Dextrose 5% 1,000 Ml IVPB PRN PRN Hypoglycemia Protocol Insulin Aspart 15 units 07/03/20 12:00 07/04/20 12:21 Novolog SUB-Q 15 units TIDWM FELIPE Administration Insulin Glargine 50 units
[2020-07-04 14:00] VITALS: BP 138/62; PULSE 78; RESP 20; TEMP 36.2; O2SAT 97
[2020-07-04 14:15] VITALS: BMI 36.8
[2020-07-04] MEDS: metFORMIN HCL 500 MG TABLET 1000 MG PO (17:37)
[2020-07-04 17:45] LABS: Glucose Point of Care 264 (65-105)
[2020-07-04] MEDS: INSULIN GLARGINE (*BKC) 100 UNITS/ML 50 UNITS SUB-Q (17:45)
[2020-07-04 20:31] VITALS: PULSE 84
[2020-07-04] MEDS: MELATONIN 3 MG TABLET PO (20:31)
[2020-07-04] MEDS: ATORVASTATIN 40 MG TABLET PO (20:31)
[2020-07-04 20:53] VITALS: BP 126/73; PULSE 87; RESP 18; TEMP 36.5; O2SAT 99
[2020-07-04 21:23] LABS: Glucose Point of Care 172 (65-105)
[2020-07-05 06:00] VITALS: BP 140/69; PULSE 88; RESP 16; TEMP 36.4; O2SAT 99
[2020-07-05 06:53] LABS: Glucose Point of Care 210 (65-105)
[2020-07-05 07:06] LABS: Anion Gap 7 mmol/L (8-16); Blood Urea Nitrogen 16 mg/dL (7-17); Calcium 8.8 mg/dL (8.4-10.2); Carbon Dioxide 30 mmol/L (22-30); Chloride 97 mmol/L (98-107); Estimated CRCL calculation 140 ml/min; Estimated Glomerular Filt Rate > 60; Glucose 223 mg/dL (65-105); Potassium 3.8 mmol/L (3.4-5.0); Sodium 134 mmol/L (137-145)
[2020-07-05] MEDS: INSULIN ASPART (*BKC) 100 UNITS/ML 15 UNITS SUB-Q ×3 (07:52→18:15)
[2020-07-05 08:15] LABS: Basophils Percent Auto 0.5 % (0.2-1.2); Eosinophils Absolute Auto 0.1 K/mm3 (0-0.3); Eosinophils Percent Auto 1.6 % (0-4.4); Hematocrit 39.2 % (37.0-47.0); Hemoglobin 13.1 g/dL (12.0-15.0); Immature Granulocyte Absolute 0.03 K/mm3 (0.00-0.031); Immature Granulocyte Percent A 0.3 % (0-0.5); Lymphocytes Percent Auto 23.8 % (18.3-44.2); Mean Corpuscular HGB Conc 33.4 g/dl (32-36); Mean Corpuscular Hemoglobin 27.4 pg (26-34); Mean Platelet Volume 10.7 fl (7.4-10.4); Monocytes Absolute Auto 0.8 K/mm3 (0.1-0.6); Monocytes Percent Auto 8.5 % (2.6-8.5); Neutrophils Absolute Auto 5.8 K/mm3 (1.3-6.7); Neutrophils Percent Auto 65.3 % (45.5-73.1); Platelet Count Result 345 k/mm3 (150-375); Red Blood Count 4.78 M/mm3 (4.2-5.4); Red Cell Distribution Width 13.5 % (11.5-14.5); White Blood Count 8.8 K/mm3 (4.5-10.0)
[2020-07-05] MEDS: metFORMIN HCL 500 MG TABLET 1000 MG PO ×2 (09:46→18:15)
[2020-07-05] MEDS: POTASSIUM CHLORIDE 10 MEQ TABLET.ER PO (09:47)
[2020-07-05] MEDS: ASPIRIN 325 MG ENTERIC TABLET PO (09:47)
[2020-07-05] MEDS: amLODIPine BESYLATE 5 MG TABLET 10 MG PO (09:47)
[2020-07-05 09:48] VITALS: PULSE 88
[2020-07-05] MEDS: MAGNESIUM OXIDE 400 MG TABLET PO (09:48)
[2020-07-05] MEDS: FLUoxetine HCL 20 MG CAPSULE PO (09:48)
[2020-07-05] MEDS: carvediloL 6.25 MG TABLET PO ×2 (09:48→20:14)
[2020-07-05] MEDS: lisinopriL 10 MG TABLET PO ×2 (09:48→18:15)
[2020-07-05] MEDS: CHLORTHALIDONE 25 MG TABLET PO (09:48)
[2020-07-05 11:59] LABS: Glucose Point of Care 250 (65-105)
[2020-07-05 14:00] VITALS: BP 113/55; PULSE 85; RESP 20; TEMP 37; O2SAT 99
[2020-07-05 16:54] LABS: Glucose Point of Care 228 (65-105)
[2020-07-05] MEDS: INSULIN GLARGINE (*BKC) 100 UNITS/ML 50 UNITS SUB-Q (18:14)
[2020-07-05 20:14] VITALS: PULSE 80
[2020-07-05] MEDS: ATORVASTATIN 40 MG TABLET PO (20:14)
[2020-07-05] MEDS: MELATONIN 3 MG TABLET PO (20:15)
[2020-07-05 20:27] LABS: Glucose Point of Care 228 (65-105)
[2020-07-05 21:52] VITALS: BP 139/78; PULSE 96; RESP 16; TEMP 36.8; O2SAT 99
[2020-07-06 06:10] VITALS: BP 125/72; PULSE 80; RESP 18; TEMP 36.3; O2SAT 97
[2020-07-06 06:47] LABS: Glucose Point of Care 175 (65-105)
[2020-07-06] MEDS: INSULIN ASPART (*BKC) 100 UNITS/ML 15 UNITS SUB-Q ×2 (08:27→12:12)
[2020-07-06] MEDS: metFORMIN HCL 500 MG TABLET 1000 MG PO ×2 (08:28→20:57)
[2020-07-06] MEDS: POTASSIUM CHLORIDE 10 MEQ TABLET.ER PO (08:29)
[2020-07-06] MEDS: amLODIPine BESYLATE 5 MG TABLET 10 MG PO (08:29)
[2020-07-06 08:30] VITALS: PULSE 80
[2020-07-06] MEDS: ASPIRIN 325 MG ENTERIC TABLET PO (08:30)
[2020-07-06] MEDS: carvediloL 6.25 MG TABLET PO ×2 (08:30→20:57)
[2020-07-06] MEDS: lisinopriL 10 MG TABLET PO ×2 (08:31→20:56)
[2020-07-06] MEDS: MAGNESIUM OXIDE 400 MG TABLET PO (08:31)
[2020-07-06] MEDS: CHLORTHALIDONE 25 MG TABLET PO (08:31)
[2020-07-06] MEDS: FLUoxetine HCL 20 MG CAPSULE PO (08:31)
[2020-07-06 12:04] LABS: Glucose Point of Care 188 (65-105)
--- NOTE | 2020-07-06 12:38 | WPDNEURORHBP ---
Subjective Date/time seen: 07/06/20 12:38 54 years old lady complains of ongoing back pain and as mentioned previously all the studies have been negative Review of Systems Review of Systems: All systems reviewed & are unremarkable except as noted in HPI and below Functional Status Ambulation Ability Ability to Ambulate 10 Feet: Moderate Assistance X 2 Ambulation Assistive Devices: Walker, Wheeled Exam Narrative: Exam Narrative: examination reveals her to be awake alert head normocephalic ears nose throat examination normal no nasal drainage eyes normal with normal extraocular movements no redness neck is supple normal JVD respiration clear to the auscultation with no rhonchi or crepitations heart regular with no murmur abdomen is soft with no organomegaly normal bowel sounds no tenderness is skin normal with no rash neurologically she is awake alert oriented x3 continues to show the left hemiparesis with hyperreflexia upgoing plantar response but at present normal mental status Objective Data Vital Signs Vital Signs: Vital Signs - 24 hr 07/05/20 14:00 07/05/20 20:14 07/05/20 21:52 Temperature 37.0 C 36.8 C Pulse Rate 85 80 96 Respiratory Rate 20 16 Blood Pressure 113/55 L 139/78 Pulse Oximetry 99 99 07/06/20 06:10 07/06/20 08:30 Temperature 36.3 C L Pulse Rate 80 80 Respiratory Rate 18 Blood Pressure 125/72 Pulse Oximetry 97 Intake/Output Intake/Output: Intake & Output 07/03/20 07/04/20 07/05/20 07/06/20 23:59 23:59 23:59 23:59 Intake Total 480 720 480 0 Balance 480 720 480 0 Meds/Results Medications: Active Medications Generic Name Dose Route Start Last Admin Trade Name Freq PRN Reason Stop Dose Admin Acetaminophen 650 mg 06/28/20 02:11 07/04/20 09:56 Tylenol Tablet PO 650 mg Q6H PRN Administration Mild Pain (Scale Score 1-4) Amlodipine Besylate 10 mg 06/28/20 09:00 07/06/20 08:29 Norvasc PO 10 mg DAILY FELIPE Administration Aspirin 325 mg 06/28/20 09:00 07/06/20 08:30 Aspirin Ec PO 325 mg DAILY FELIPE Administration Atorvastatin Calcium 40 mg 06/28/20 21:00 07/05/20 20:14 Lipitor PO 40 mg HS FELIPE Administration Carvedilol 6.25 mg 06/28/20 09:00 07/06/20 08:30 Coreg PO 6.25 mg Q12HR FELIPE Administration Chlorthalidone 25 mg 06/28/20 09:00 07/06/20 08:31 [place] PO 25 mg DAILY FELIPE Administration Dextrose 12.5 gm 06/28/20 02:14 Dextrose 50% Syringe IV PUSH PRN PRN Hypoglycemia Protocol Fluoxetine HCl 20 mg 06/28/20 09:00 07/06/20 08:31 Prozac PO 20 mg DAILY FELIPE Administration Glucagon 1 mg 06/28/20 02:14 Glucagon For Inj IM PRN PRN Hypoglycemia Protocol Glucose 15 gm 06/28/20 02:14 Glutose 15 PO PRN PRN Hypoglycemia Protocol Hydralazine HCl 25 mg 06/28/20 02:11 Apresoline Tablet PO Q6H PRN Hypertension Dextrose 1,000 mls @ 100 mls/hr 06/28/20 02:14 Dextrose 5% 1,000 Ml IVPB PRN PRN Hypoglycemia Protocol Insulin Aspart 15 units 07/03/20 12:00 07/06/20 12:12 Novolog SUB-Q 15 units TIDWM FELIPE Administration Insulin Glargine 50 units 07/04/20 18:00 07/05/20 18:14 Lantus SUB-Q 50 units QPM FELIPE Administration Lisinopril 10 mg 06/28/20 09:00 07/06/20 08:31 Prinivil PO 10 mg BID FELIPE Administration Magnesium Oxide 400 mg 06/28/20 09:00 07/06/20 08:31 Mag-Ox PO 400 mg DAILY FELIPE Administration Meclizine HCl 25 mg 06/28/20 02:11 Antivert PO Q6H PRN Dizziness Melatonin 3 mg 06/29/20 21:25 07/05/20 20:15 Melatonin PO 3 mg HS FELIPE Administration Metformin HCl 1,000 mg 07/04/20 17:00 07/06/20 08:28 Glucophage PO 1,000 mg BIDWM FELIPE Administration Potassium Chloride 10 meq 06/28/20 08:00 07/06/20 08:29 Kcl Tablet PO 10 meq DAILY@0800 FELIPE Administration Radiology Results: ITS Impressions Head CT 07/03/20 0
[2020-07-06 14:00] VITALS: BP 145/82; PULSE 91; RESP 20; TEMP 37.1; O2SAT 100
[2020-07-06 20:20] LABS: Glucose Point of Care 182 (65-105)
[2020-07-06] MEDS: INSULIN GLARGINE (*BKC) 100 UNITS/ML 50 UNITS SUB-Q (20:55)
[2020-07-06 20:57] VITALS: PULSE 89
[2020-07-06] MEDS: ATORVASTATIN 40 MG TABLET PO (20:57)
[2020-07-06] MEDS: MELATONIN 3 MG TABLET PO (21:01)
[2020-07-06 22:00] VITALS: BP 126/75; PULSE 98; RESP 18; TEMP 36.4; O2SAT 100
[2020-07-07 06:00] VITALS: BP 143/73; PULSE 95; RESP 18; TEMP 36.5; O2SAT 97
[2020-07-07 06:47] LABS: Glucose Point of Care 167 (65-105)
[2020-07-07] MEDS: INSULIN ASPART (*BKC) 100 UNITS/ML 15 UNITS SUB-Q ×3 (08:49→17:42)
[2020-07-07] MEDS: metFORMIN HCL 500 MG TABLET 1000 MG PO ×2 (08:50→17:43)
[2020-07-07] MEDS: POTASSIUM CHLORIDE 10 MEQ TABLET.ER PO (08:51)
[2020-07-07 08:52] VITALS: PULSE 70
[2020-07-07] MEDS: CHLORTHALIDONE 25 MG TABLET PO (08:52)
[2020-07-07] MEDS: amLODIPine BESYLATE 5 MG TABLET 10 MG PO (08:52)
[2020-07-07] MEDS: ASPIRIN 325 MG ENTERIC TABLET PO (08:52)
[2020-07-07] MEDS: carvediloL 6.25 MG TABLET PO ×2 (08:52→20:45)
[2020-07-07] MEDS: lisinopriL 10 MG TABLET PO ×2 (08:53→17:43)
[2020-07-07] MEDS: FLUoxetine HCL 20 MG CAPSULE PO (08:53)
[2020-07-07] MEDS: MAGNESIUM OXIDE 400 MG TABLET PO (08:53)
[2020-07-07 12:29] LABS: Glucose Point of Care 248 (65-105)
--- NOTE | 2020-07-07 13:32 | PCDIET ---
Nutrition Follow-Up Complete: Nutrition Diagnosis: Food and Nutrition related knowledge deficit related to no prior nutrition education as evidenced by patient report and new diagnosis of CVA Nutrition Goal: Patient to consume 75% or more of meals Goal in progress. Average intake from last review was 73% of recorded meals. Patient reports good appetite and feels she is eating well. Diet is diabetic which is appropriate, although recommend adding heart healthy diet in the emr specialist. Last recorded weight is 91.2 kg. Recommend obtaining new weight. Bowel Motility: +BM on 07/06/20. Labs Reviewed: Glu (248) Meds Noted: Novolog, Lantus, Mag-Ox, Glucophage, KCl Additional Notes: No documented skin breakdown. Will continue to monitor with same goal. Nutrition Monitoring and Evaluation: Follow up in 7 days .
[2020-07-07 14:00] VITALS: BP 138/64; PULSE 78; RESP 20; TEMP 36.6; O2SAT 97
--- NOTE | 2020-07-07 16:11 | PCCDE ---
diabetes education f/up: noted BG pattern; since Lantus increase and addition of Metformin on 07/04 BG range has improved to 167-250mg/dl compared to 231-332mg/dl prior. Met with pt and and discussed improvements. Reviewed ADA BG target of 80-130mg/dl pre-meal. Pt and denied questions. IF pt is discharged on insulin she will need rx's for insulin and pen needles. Per [employer] formulary for [employer]: Basaglar Kwikpen is preferred long acting insulin, and Humalog Kwikpen is preferred rapid acting. Recommend BD Mckenna 4mm pen needles.
[2020-07-07 17:39] LABS: Glucose Point of Care 216 (65-105)
[2020-07-07] MEDS: INSULIN GLARGINE (*BKC) 100 UNITS/ML 50 UNITS SUB-Q (17:44)
[2020-07-07 20:00] VITALS: PULSE 74; RESP 20; O2SAT 96
[2020-07-07 20:45] VITALS: PULSE 90
[2020-07-07] MEDS: ATORVASTATIN 40 MG TABLET PO (20:45)
[2020-07-07] MEDS: MELATONIN 3 MG TABLET PO (20:50)
[2020-07-07 22:00] VITALS: BP 129/78; PULSE 74; RESP 20; TEMP 36.5; O2SAT 96
[2020-07-08 06:00] VITALS: BP 147/90; PULSE 100; RESP 20; TEMP 36.8; O2SAT 98
[2020-07-08 06:48] LABS: Glucose Point of Care 142 (65-105)
[2020-07-08] MEDS: INSULIN ASPART (*BKC) 100 UNITS/ML 15 UNITS SUB-Q ×3 (09:15→16:37)
[2020-07-08] MEDS: metFORMIN HCL 500 MG TABLET 1000 MG PO ×2 (09:18→16:34)
[2020-07-08] MEDS: CHLORTHALIDONE 25 MG TABLET PO (09:18)
[2020-07-08] MEDS: POTASSIUM CHLORIDE 10 MEQ TABLET.ER PO (09:18)
[2020-07-08] MEDS: ASPIRIN 325 MG ENTERIC TABLET PO (09:18)
[2020-07-08] MEDS: MAGNESIUM OXIDE 400 MG TABLET PO (09:18)
[2020-07-08 09:19] VITALS: PULSE 84
[2020-07-08] MEDS: amLODIPine BESYLATE 5 MG TABLET 10 MG PO (09:19)
[2020-07-08] MEDS: FLUoxetine HCL 20 MG CAPSULE PO (09:19)
[2020-07-08] MEDS: carvediloL 6.25 MG TABLET PO ×2 (09:19→20:31)
[2020-07-08] MEDS: lisinopriL 10 MG TABLET PO ×2 (09:20→16:34)
--- NOTE | 2020-07-08 10:13 | PCPTNOTE ---
Donna De La Cruz, PT completed an inpatient rehab wheelchair evaluation on Elizabeth De La Rosa on 07/08/2020. The patient is unable to safely and independently ambulate household distances due to their current impairments. Their diagnosis is CVA and their impairments include decreased strength, decreased endurance, decreased range of motion, decreased balance, lower extremity weakness, and ataxia. Elizabeth's weight bearing status is weight-bearing as tolerated on the bilateral lower legs. The patient demonstrates significant functional mobility limitations that impair their ability to participate in mobility-related activities of daily living (MRADLs), including toileting, feeding, dressing, grooming, and bathing in the customary locations in the home. These limitations cannot be sufficiently resolved by the use of an appropriately fitted cane or walker. It is recommended that the patient utilize a wheelchair for functional mobility within the home in order to facilitate optimal safety, independence and participation in all MRADL's and adequately access their home environment on a regular basis. The patient's home provides adequate access between rooms, maneuvering space, and surfaces to accommodate the recommended wheelchair. The use of a wheelchair for functional mobility is strongly recommended and the patient is receptive to using the wheelchair. The use of this wheelchair will significantly improve the patient's ability to participate in MRADLS and the patient will use it on a regular basis in the home. This will facilitate optimal safety, independence, and participation. The patient has demonstrated sufficient physical and mental capabilities needed to safely propel a manual wheelchair that is provided in the home during a typical day. Recommended Wheelchair Frame: standard Recommended Wheelchair Size: 18 x 18 Recommended Wheelchair Cushion:standard Wheelchair Leg Recommendations: elevating, detachable - Elevating legrests are recommended because the patient has significant edema of the lower extremities that requires an elevating legrest. - Anti-tippers are recommended due to patient demonstrating increased risk for falls. They would benefit from anti-tippers with added safety and stabilization. ___Donna De La Cruz PT __07/08/20__ Evaluating Therapist Date I agree with and certify that the above recommendation is medically necessary. Referring Physician Date I agree with and certify that the above recommendation is medically necessary. Referring Physician Date
--- NOTE | 2020-07-08 10:16 | PCPTNOTE ---
Elizabeth De La Rosa was evaluated for a wheeled walker on 07/08/2020 by this physical therapist. The wheeled walker will resolve patient's mobility limitations and will be used for ADL's within the home. ?The wheeled walker will resolve the patient?s mobility deficits, including transfers. Donna De La Cruz PT
[2020-07-08 12:04] LABS: Glucose Point of Care 160 (65-105)
[2020-07-08] MEDS: ENOXAPARIN 40 MG/0.4 ML SYRINGE SUB-Q (12:41)
[2020-07-08] MEDS: ONDANSETRON HCL ODT 4 MG TABLET PO (13:42)
[2020-07-08 14:00] VITALS: BP 131/68; PULSE 92; RESP 16; TEMP 36.6; O2SAT 97
--- NOTE | 2020-07-08 14:21 | PCOTNOTE ---
Mrs. De La Rosa was evaluated for a bedside commode on 07/08/10 by this occupational therapist. The bedside commode will resolve that patient?s self-care limitations and will be used for ADL?s within the home. The patient is unable to ambulate to bathroom due to weakness, left visual deficits, left neglect, and impaired balance with severe left lateral lean during mobility tasks. Per patient's family, a wheelchair will not fit into the patient's bathroom. The bedside commode will decrease caregiver burden and allow for improved safety with care of patient in her home. The bedside commode is required due to patients? history of CVA with left sided weakness, visual deficits and balance impairment. I agree with and certify that the above recommendation is medically necessary. Referring Physician Date
--- NOTE | 2020-07-08 14:50 | WPDNEURORHBP ---
Subjective Date/time seen: 07/08/20 14:50 Interval history: this 54-year-old woman is here after having had cerebellar and cerebral stroke which has left her with the cerebellar signs on the left and also the left-sided hemiparesis she is not making much progress and only walking 12 feet and home she is only on aspirin and Plavix as she was sent from the tertiary care facility however feel to protect her from having DVT she needs to be on Lovenox and have started on it on the other hand she denies any headache nausea vomiting chest pain shortness of breath fever chills sore throat and progressing in the rehab Review of Systems Review of Systems: All systems reviewed & are unremarkable except as noted in HPI and below Functional Status Ambulation Ability Ability to Ambulate 10 Feet: Moderate Assistance X 1 Ambulation Assistive Devices: Walker, Wheeled Exam Const: General: comfortable and no acute distress HENMT: General nose exam: Normal nares present Mouth: Yes moist mucous membranes Eyes: General: appearance normal, both eyes and all related structures Neck: Neck: supple and no JVD Resp: Effort & Inspection: normal respiratory effort Auscultation: clear to auscultation bilaterally Cardio: Rate: regular rate Rhythm: regular rhythm GI: GI Palp: Yes Soft to palpation Auscultation: normal bowel sounds Skin: General skin exam: normal color and no rashes or lesions noted Neuro: Other: patient is awake alert well oriented has significant left-sided hemiparesis and left-sided cerebellar signs and rather at times unusual affect which is hard to describe but does not complain on the other hand particularly denies any headache nausea vomiting chest pain shortness of breath fever chills sore throat Extrem: General: normal to inspection Psych: Other: unusual affect noted periodically by this examiner otherwise she is not anxious she is not sad and but comes across a person who does not want to talk much Objective Data Vital Signs Vital Signs: Vital Signs - 24 hr 07/07/20 20:00 07/07/20 20:45 07/07/20 22:00 Temperature 36.5 C Pulse Rate 74 90 74 Respiratory Rate 20 20 Blood Pressure 129/78 Pulse Oximetry 96 96 07/08/20 06:00 07/08/20 09:19 Temperature 36.8 C Pulse Rate 100 84 Respiratory Rate 20 Blood Pressure 147/90 H Pulse Oximetry 98 Intake/Output Intake/Output: Intake & Output 07/05/20 07/06/20 07/07/20 07/08/20 23:59 23:59 23:59 23:59 Intake Total 480 120 960 240 Balance 480 120 960 240 Meds/Results Medications: Active Medications Generic Name Dose Route Start Last Admin Trade Name Freq PRN Reason Stop Dose Admin Acetaminophen 650 mg 06/28/20 02:11 07/04/20 09:56 Tylenol Tablet PO 650 mg Q6H PRN Administration Mild Pain (Scale Score 1-4) Amlodipine Besylate 10 mg 06/28/20 09:00 07/08/20 09:19 Norvasc PO 10 mg DAILY FELIPE Administration Aspirin 325 mg 06/28/20 09:00 07/08/20 09:18 Aspirin Ec PO 325 mg DAILY FELIPE Administration Atorvastatin Calcium 40 mg 06/28/20 21:00 07/07/20 20:45 Lipitor PO 40 mg HS FELIPE Administration Carvedilol 6.25 mg 06/28/20 09:00 07/08/20 09:19 Coreg PO 6.25 mg Q12HR FELIPE Administration Chlorthalidone 25 mg 06/28/20 09:00 07/08/20 09:18 [place] PO 25 mg DAILY FELIPE Administration Dextrose 12.5 gm 06/28/20 02:14 Dextrose 50% Syringe IV PUSH PRN PRN Hypoglycemia Protocol Enoxaparin Sodium 40 mg 07/08/20 09:00 07/08/20 12:41 Lovenox SUB-Q 40 mg DAILY FELIPE Administration Fluoxetine HCl 20 mg 06/28/20 09:00 07/08/20 09:19 Prozac PO 20 mg DAILY FELIPE Administration Glucagon 1 mg 06/28/20 02:14 Glucagon For Inj IM PRN PRN Hypoglycemia Protocol Glucose 15 gm 06/28/20 02:14 Glutose 15 PO PRN PRN Hypoglycemia Protocol Hydralazine HCl 25 mg 06/28/20 02:11 Apresoline Tablet PO Q6H PRN
[2020-07-08] MEDS: INSULIN GLARGINE (*BKC) 100 UNITS/ML 50 UNITS SUB-Q (17:43)
[2020-07-08 19:17] LABS: Glucose Point of Care 177 (65-105)
[2020-07-08 20:16] LABS: Glucose Point of Care 221 (65-105)
[2020-07-08 20:31] VITALS: PULSE 92
[2020-07-08] MEDS: ATORVASTATIN 40 MG TABLET PO (20:32)
[2020-07-08] MEDS: MELATONIN 3 MG TABLET PO (20:33)
[2020-07-08 20:57] VITALS: BP 104/54; PULSE 93; RESP 20; TEMP 36.6; O2SAT 100
[2020-07-09 05:41] VITALS: BP 114/58; PULSE 83; RESP 18; TEMP 36.5; O2SAT 100
[2020-07-09 06:43] LABS: Glucose Point of Care 119 (65-105)
[2020-07-09] MEDS: ENOXAPARIN 40 MG/0.4 ML SYRINGE SUB-Q (07:59)
[2020-07-09] MEDS: ASPIRIN 325 MG ENTERIC TABLET PO (07:59)
[2020-07-09] MEDS: POTASSIUM CHLORIDE 10 MEQ TABLET.ER PO (07:59)
[2020-07-09] MEDS: CHLORTHALIDONE 25 MG TABLET PO (07:59)
[2020-07-09] MEDS: amLODIPine BESYLATE 5 MG TABLET 10 MG PO (07:59)
[2020-07-09 08:00] VITALS: PULSE 75; PULSE 82; RESP 18; O2SAT 100
[2020-07-09] MEDS: lisinopriL 10 MG TABLET PO ×2 (08:00→17:55)
[2020-07-09] MEDS: carvediloL 6.25 MG TABLET PO ×2 (08:00→20:43)
[2020-07-09] MEDS: hydrALAZINE HCL 25 MG TABLET PO (08:00)
[2020-07-09] MEDS: metFORMIN HCL 500 MG TABLET 1000 MG PO ×2 (08:00→17:56)
[2020-07-09] MEDS: MAGNESIUM OXIDE 400 MG TABLET PO (08:00)
[2020-07-09] MEDS: FLUoxetine HCL 20 MG CAPSULE PO (08:00)
[2020-07-09] MEDS: INSULIN ASPART (*BKC) 100 UNITS/ML 15 UNITS SUB-Q ×3 (08:01→17:53)
[2020-07-09 12:23] LABS: Glucose Point of Care 134 (65-105)
[2020-07-09 14:00] VITALS: BP 120/64; PULSE 75; RESP 18; TEMP 36.8; O2SAT 100
--- NOTE | 2020-07-09 15:10 | WPDNEURORHBP ---
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 and in fact she walked today as per on admission Mar 100 feet she is talking much better and doing fairly well without any headache nausea vomiting chest pain shortness of breath fever chills sore throat Review of Systems Review of Systems: All systems reviewed & are unremarkable except as noted in HPI and below Functional Status Ambulation Ability Ability to Ambulate 10 Feet: Moderate Assistance X 1 Ambulation Assistive Devices: Walker, Wheeled Exam Const: General: comfortable and no acute distress HENMT: General nose exam: Normal nares present Mouth: Yes moist mucous membranes Eyes: General: appearance normal, both eyes and all related structures Neck: Neck: supple and no JVD Resp: Effort & Inspection: normal respiratory effort Auscultation: clear to auscultation bilaterally Cardio: Rate: regular rate Rhythm: regular rhythm GI: GI Palp: Yes Soft to palpation Auscultation: normal bowel sounds Urinary Catheter: Urinary Catheter: patent and draining Skin: General skin exam: normal color and no rashes or lesions noted Neuro: Other: patient is awake alert well oriented significant improvement in the cerebellar and the cerebral deficit she walked 100 feet today Extrem: General: normal to inspection Psych: Mental Status: mental status grossly normal Objective Data Vital Signs Vital Signs: Vital Signs - 24 hr 07/08/20 20:31 07/08/20 20:57 07/09/20 05:41 Temperature 36.6 C 36.5 C Pulse Rate 92 93 83 Respiratory Rate 20 18 Blood Pressure 104/54 L 114/58 L Pulse Oximetry 100 100 07/09/20 08:00 07/09/20 14:00 Temperature 36.8 C Pulse Rate 82 75 Respiratory Rate 18 Blood Pressure 120/64 Pulse Oximetry 100 Intake/Output Intake/Output: Intake & Output 07/06/20 07/07/20 07/08/20 07/09/20 23:59 23:59 23:59 23:59 Intake Total 120 960 720 480 Balance 120 960 720 480 Meds/Results Medications: Active Medications Generic Name Dose Route Start Last Admin Trade Name Freq PRN Reason Stop Dose Admin Acetaminophen 650 mg 06/28/20 02:11 07/04/20 09:56 Tylenol Tablet PO 650 mg Q6H PRN Administration Mild Pain (Scale Score 1-4) Amlodipine Besylate 10 mg 06/28/20 09:00 07/09/20 07:59 Norvasc PO 10 mg DAILY FELIPE Administration Aspirin 325 mg 06/28/20 09:00 07/09/20 07:59 Aspirin Ec PO 325 mg DAILY FELIPE Administration Atorvastatin Calcium 40 mg 06/28/20 21:00 07/08/20 20:32 Lipitor PO 40 mg HS FELIPE Administration Carvedilol 6.25 mg 06/28/20 09:00 07/09/20 08:00 Coreg PO 6.25 mg Q12HR FELIPE Administration Chlorthalidone 25 mg 06/28/20 09:00 07/09/20 07:59 Hygroton PO 25 mg DAILY FELIPE Administration Dextrose 12.5 gm 06/28/20 02:14 Dextrose 50% Syringe IV PUSH PRN PRN Hypoglycemia Protocol Enoxaparin Sodium 40 mg 07/08/20 09:00 07/09/20 07:59 Lovenox SUB-Q 40 mg DAILY FELIPE Administration Fluoxetine HCl 20 mg 06/28/20 09:00 07/09/20 08:00 Prozac PO 20 mg DAILY FELIPE Administration Glucagon 1 mg 06/28/20 02:14 Glucagon For Inj IM PRN PRN Hypoglycemia Protocol Glucose 15 gm 06/28/20 02:14 Glutose 15 PO PRN PRN Hypoglycemia Protocol Hydralazine HCl 25 mg 06/28/20 02:11 07/09/20 08:00 Apresoline Tablet PO 25 mg Q6H PRN Administration Hypertension Dextrose 1,000 mls @ 100 mls/hr 06/28/20 02:14 Dextrose 5% 1,000 Ml IVPB PRN PRN Hypoglycemia Protocol Insulin Aspart 15 units 07/03/20 12:00 07/09/20 12:45 Novolog SUB-Q 15 units TIDWM FELIPE Administration Insulin Glargine 50 units 07/04/20 18:00 07/08/20 17:43 Lantus SUB-Q 50 units QPM FELIPE Administration Lisinopril 10 mg 06/28/20 09:00 07/09/20 08:00 Prinivil PO 10 mg
[2020-07-09 17:50] LABS: Glucose Point of Care 183 (65-105)
[2020-07-09] MEDS: INSULIN GLARGINE (*BKC) 100 UNITS/ML 50 UNITS SUB-Q (17:54)
[2020-07-09] MEDS: ATORVASTATIN 40 MG TABLET PO (20:42)
[2020-07-09 22:00] VITALS: BP 143/87; PULSE 82; RESP 16; TEMP 36.6; O2SAT 99
[2020-07-10 06:00] VITALS: BP 107/57; PULSE 85; RESP 16; TEMP 36.6; O2SAT 99
[2020-07-10 06:46] LABS: Glucose Point of Care 111 (65-105)
[2020-07-10] MEDS: INSULIN ASPART (*BKC) 100 UNITS/ML 15 UNITS SUB-Q ×3 (09:47→18:23)
[2020-07-10] MEDS: metFORMIN HCL 500 MG TABLET 1000 MG PO ×2 (09:48→18:24)
[2020-07-10 09:49] VITALS: PULSE 85
[2020-07-10] MEDS: POTASSIUM CHLORIDE 10 MEQ TABLET.ER PO (09:49)
[2020-07-10] MEDS: amLODIPine BESYLATE 5 MG TABLET 10 MG PO (09:49)
[2020-07-10] MEDS: ENOXAPARIN 40 MG/0.4 ML SYRINGE SUB-Q (09:49)
[2020-07-10] MEDS: ASPIRIN 325 MG ENTERIC TABLET PO (09:49)
[2020-07-10] MEDS: carvediloL 6.25 MG TABLET PO ×2 (09:49→20:43)
[2020-07-10] MEDS: CHLORTHALIDONE 25 MG TABLET PO (09:49)
[2020-07-10] MEDS: MAGNESIUM OXIDE 400 MG TABLET PO (09:50)
[2020-07-10] MEDS: lisinopriL 10 MG TABLET PO ×2 (09:50→18:25)
[2020-07-10] MEDS: FLUoxetine HCL 20 MG CAPSULE PO (09:50)
[2020-07-10 12:00] LABS: Glucose Point of Care 236 (65-105)
[2020-07-10 14:00] VITALS: BP 136/70; PULSE 82; RESP 20; TEMP 36.6; O2SAT 96
--- NOTE | 2020-07-10 16:16 | PCPTNOTE ---
Elizabeth De La Rosa was evaluated for a hospital bed on 07/10/2020 by this physical therapist. The patient demonstrates impaired generalized mobility as a result of her stroke resulting in residual hemiparesis, impaired balance and coordination, and impaired safety awareness. She currently requires up to moderate assistance for stand pivot transfers. She would benefit from a hospital bed in order to facilitate optimal safety with transfers by allowing for an adjustable height bed function with a hospital bed. She would also benefit from a hospital bed due to her primary bedrooms being on the second floor and she is currently unable to ascend/descend stairs given the severity of her deficits. As a result, the patient is confined to the first floor of her home. A hospital bed is able to fit within the first floor of her home and would assist with optimal patient and caregiver safety. Brooklyn Mcgregor, PT, DPT
[2020-07-10 17:08] LABS: Glucose Point of Care 159 (65-105)
--- NOTE | 2020-07-10 18:12 | PC.NURSE ---
Upper lip and 1/2 of bottom lip. Denies pain, no other swelling noted and no s/s of respiratory distress. Thinks she bit her lip; but note that she lays on stomach during the night and may have layed on something like her glasses or telephone. Ice applied, Dr. Gilmore aware and directed to monitor for now.
[2020-07-10 20:08] VITALS: BP 121/59; PULSE 85; RESP 18; TEMP 36.8; O2SAT 99
[2020-07-10 20:43] VITALS: PULSE 88
[2020-07-10] MEDS: ATORVASTATIN 40 MG TABLET PO (20:43)
[2020-07-11 05:08] VITALS: BP 126/85; PULSE 93; RESP 20; TEMP 36.6; O2SAT 98
[2020-07-11 06:37] LABS: Glucose Point of Care 134 (65-105)
[2020-07-11] MEDS: INSULIN ASPART (*BKC) 100 UNITS/ML 15 UNITS SUB-Q (09:52)
[2020-07-11] MEDS: amLODIPine BESYLATE 5 MG TABLET 10 MG PO (09:54)
[2020-07-11] MEDS: metFORMIN HCL 500 MG TABLET 1000 MG PO ×2 (09:54→18:26)
[2020-07-11] MEDS: POTASSIUM CHLORIDE 10 MEQ TABLET.ER PO (09:54)
[2020-07-11 09:55] VITALS: PULSE 93
[2020-07-11] MEDS: ASPIRIN 325 MG ENTERIC TABLET PO (09:55)
[2020-07-11] MEDS: carvediloL 6.25 MG TABLET PO ×2 (09:55→21:02)
[2020-07-11] MEDS: ENOXAPARIN 40 MG/0.4 ML SYRINGE SUB-Q (09:55)
[2020-07-11] MEDS: CHLORTHALIDONE 25 MG TABLET PO (09:55)
[2020-07-11] MEDS: MAGNESIUM OXIDE 400 MG TABLET PO (09:55)
[2020-07-11] MEDS: lisinopriL 10 MG TABLET PO ×2 (09:55→18:26)
[2020-07-11] MEDS: FLUoxetine HCL 20 MG CAPSULE PO (09:55)
--- NOTE | 2020-07-11 11:31 | PC.NURSE ---
Late entry: 07/10/20; spoke with Dr. Gilmore regarding blood sugar of 159 and Novolog admin and Lantus. Hold Lantus and decrease Novolog to 10.
[2020-07-11 12:42] LABS: Glucose Point of Care 200 (65-105)
[2020-07-11] MEDS: INSULIN ASPART (*BKC) 100 UNITS/ML 10 UNITS SUB-Q ×2 (13:14→18:45)
[2020-07-11 14:00] VITALS: BP 136/69; PULSE 76; RESP 20; TEMP 36.3; O2SAT 97
--- NOTE | 2020-07-11 15:32 | WPDNEURORHBP ---
Subjective Date/time seen: 07/11/20 15:32 Interval history: this 54-year-old woman is here status post stroke she had a lip swelling yesterday without any evidence of tongue biting or any evidence of seizure which is going down it is without any itching is better than yesterday She has signs of cerebellar and cerebral dysfunction on the left side due to multiple strokes overall she is better and walked about 16 feet which was similar to as of yesterday denies any headache nausea vomiting chest pain shortness of breath fever chills sore throat Review of Systems Review of Systems: All systems reviewed & are unremarkable except as noted in HPI and below Functional Status Ambulation Ability Ability to Ambulate 10 Feet: Moderate Assistance X 1 Ambulation Assistive Devices: Walker, Wheeled Exam Const: General: comfortable and no acute distress HENMT: General nose exam: Normal nares present Mouth: Yes moist mucous membranes Eyes: General: appearance normal, both eyes and all related structures Neck: Neck: supple and no JVD Resp: Effort & Inspection: normal respiratory effort Auscultation: clear to auscultation bilaterally Cardio: Rate: regular rate Rhythm: regular rhythm GI: GI Palp: Yes Soft to palpation Auscultation: normal bowel sounds Skin: General skin exam: normal color and no rashes or lesions noted Neuro: Other: patient is awake alert well oriented follows all commands left-sided cerebellar signs and left-sided hemiparesis with some improvement Extrem: General: normal to inspection Psych: Mental Status: mental status grossly normal Objective Data Vital Signs Vital Signs: Vital Signs - 24 hr 07/10/20 20:08 07/10/20 20:43 07/11/20 05:08 Temperature 36.8 C 36.6 C Pulse Rate 85 88 93 Respiratory Rate 18 20 Blood Pressure 121/59 L 126/85 Pulse Oximetry 99 98 07/11/20 09:55 07/11/20 14:00 Temperature 36.3 C L Pulse Rate 93 76 Respiratory Rate 20 Blood Pressure 136/69 Pulse Oximetry 97 Intake/Output Intake/Output: Intake & Output 07/08/20 07/09/20 07/10/20 07/11/20 23:59 23:59 23:59 23:59 Intake Total 720 680 720 480 Balance 720 680 720 480 Meds/Results Medications: Active Medications Generic Name Dose Route Start Last Admin Trade Name Freq PRN Reason Stop Dose Admin Acetaminophen 650 mg 06/28/20 02:11 07/04/20 09:56 Tylenol Tablet PO 650 mg Q6H PRN Administration Mild Pain (Scale Score 1-4) Amlodipine Besylate 10 mg 06/28/20 09:00 07/11/20 09:54 Norvasc PO 10 mg DAILY FELIPE Administration Aspirin 325 mg 06/28/20 09:00 07/11/20 09:55 Aspirin Ec PO 325 mg DAILY FELIPE Administration Atorvastatin Calcium 40 mg 06/28/20 21:00 07/10/20 20:43 Lipitor PO 40 mg HS FELIPE Administration Carvedilol 6.25 mg 06/28/20 09:00 07/11/20 09:55 Coreg PO 6.25 mg Q12HR FELIPE Administration Chlorthalidone 25 mg 06/28/20 09:00 07/11/20 09:55 [place]gro[place] PO 25 mg DAILY FELIPE Administration Dextrose 12.5 gm 06/28/20 02:14 Dextrose 50% Syringe IV PUSH PRN PRN Hypoglycemia Protocol Enoxaparin Sodium 40 mg 07/08/20 09:00 07/11/20 09:55 Lovenox SUB-Q 40 mg DAILY FELIPE Administration Fluoxetine HCl 20 mg 06/28/20 09:00 07/11/20 09:55 Prozac PO 20 mg DAILY FELIPE Administration Glucagon 1 mg 06/28/20 02:14 Glucagon For Inj IM PRN PRN Hypoglycemia Protocol Glucose 15 gm 06/28/20 02:14 Glutose 15 PO PRN PRN Hypoglycemia Protocol Hydralazine HCl 25 mg 06/28/20 02:11 07/09/20 08:00 Apresoline Tablet PO 25 mg Q6H PRN Administration Hypertension Dextrose 1,000 mls @ 100 mls/hr 06/28/20 02:14 Dextrose 5% 1,000 Ml IVPB PRN PRN Hypoglycemia Protocol Insulin Aspart 10 units 07/11/20 12:00 07/11/20 13:14 Novolog SUB-Q 10 units TIDWM FELIPE Administration Insulin Glargine 30 units 07/11/20 18:00 Lantus SUB-
[2020-07-11 17:25] LABS: Glucose Point of Care 130 (65-105)
[2020-07-11] MEDS: INSULIN GLARGINE (*BKC) 100 UNITS/ML 30 UNITS SUB-Q (18:45)
[2020-07-11 21:02] VITALS: PULSE 70
[2020-07-11] MEDS: ATORVASTATIN 40 MG TABLET PO (21:02)
[2020-07-11 21:27] LABS: Glucose Point of Care 198 (65-105)
[2020-07-11 22:00] VITALS: BP 140/86; PULSE 100; RESP 20; TEMP 36.1; O2SAT 99
[2020-07-12 06:00] VITALS: BP 144/81; PULSE 87; RESP 20; TEMP 36.3; O2SAT 100
[2020-07-12 06:50] LABS: Glucose Point of Care 150 (65-105)
[2020-07-12 07:16] LABS: Anion Gap 8 mmol/L (8-16); Blood Urea Nitrogen 14 mg/dL (7-17); Carbon Dioxide 28 mmol/L (22-30); Chloride 101 mmol/L (98-107); Estimated CRCL calculation 115 ml/min; Estimated Glomerular Filt Rate > 60; Glucose 161 mg/dL (65-105); Potassium 3.7 mmol/L (3.4-5.0); Sodium 137 mmol/L (137-145)
[2020-07-12] MEDS: ENOXAPARIN 40 MG/0.4 ML SYRINGE SUB-Q (08:33)
[2020-07-12] MEDS: lisinopriL 10 MG TABLET PO ×2 (08:33→16:53)
[2020-07-12] MEDS: INSULIN ASPART (*BKC) 100 UNITS/ML 10 UNITS SUB-Q ×3 (08:33→16:52)
[2020-07-12 08:34] VITALS: PULSE 84
[2020-07-12] MEDS: FLUoxetine HCL 20 MG CAPSULE PO (08:34)
[2020-07-12] MEDS: carvediloL 6.25 MG TABLET PO ×2 (08:34→20:23)
[2020-07-12] MEDS: ASPIRIN 325 MG ENTERIC TABLET PO (08:34)
[2020-07-12] MEDS: POTASSIUM CHLORIDE 10 MEQ TABLET.ER PO (08:35)
[2020-07-12] MEDS: metFORMIN HCL 500 MG TABLET 1000 MG PO ×2 (08:35→16:53)
[2020-07-12] MEDS: CHLORTHALIDONE 25 MG TABLET PO (08:35)
[2020-07-12] MEDS: MAGNESIUM OXIDE 400 MG TABLET PO (08:36)
[2020-07-12] MEDS: amLODIPine BESYLATE 5 MG TABLET 10 MG PO (10:00)
[2020-07-12 12:33] LABS: Glucose Point of Care 223 (65-105)
[2020-07-12 14:00] VITALS: BP 116/77; PULSE 91; RESP 20; TEMP 36.4; O2SAT 100
[2020-07-12 17:28] LABS: Glucose Point of Care 183 (65-105)
--- NOTE | 2020-07-12 18:19 | WPDNEURORHBP ---
Subjective Date/time seen: 07/12/20 18:19 Interval history: this 54-year-old woman is here after having had stroke cerebellar and cerebral in nature with left-sided cerebellar and cerebral deficit she is slowly improving overall denies any headache nausea vomiting chest pain shortness of breath fever chills sore throat Review of Systems Review of Systems: All systems reviewed & are unremarkable except as noted in HPI and below Functional Status Ambulation Ability Ability to Ambulate 10 Feet: Moderate Assistance X 1 Ambulation Assistive Devices: Walker, Wheeled Exam Const: General: comfortable and no acute distress HENMT: General nose exam: Normal nares present Mouth: Yes moist mucous membranes Eyes: General: appearance normal, both eyes and all related structures Neck: Neck: supple and no JVD Resp: Effort & Inspection: normal respiratory effort Auscultation: clear to auscultation bilaterally Cardio: Rate: regular rate Rhythm: regular rhythm GI: GI Palp: Yes Soft to palpation Auscultation: normal bowel sounds Skin: General skin exam: normal color and no rashes or lesions noted Neuro: Other: patient is awake alert well oriented with left-sided neurological deficit slowly improving Extrem: General: normal to inspection Psych: Mental Status: mental status grossly normal Objective Data Vital Signs Vital Signs: Vital Signs - 24 hr 07/11/20 21:02 07/11/20 22:00 07/12/20 06:00 Temperature 36.1 C L 36.3 C L Pulse Rate 70 100 87 Respiratory Rate 20 20 Blood Pressure 140/86 144/81 H Pulse Oximetry 99 100 07/12/20 08:34 07/12/20 14:00 Temperature 36.4 C Pulse Rate 84 91 Respiratory Rate 20 Blood Pressure 116/77 Pulse Oximetry 100 Intake/Output Intake/Output: Intake & Output 07/09/20 07/10/20 07/11/20 07/12/20 23:59 23:59 23:59 23:59 Intake Total 680 720 480 480 Balance 680 720 480 480 Meds/Results Medications: Active Medications Generic Name Dose Route Start Last Admin Trade Name Freq PRN Reason Stop Dose Admin Acetaminophen 650 mg 06/28/20 02:11 07/04/20 09:56 Tylenol Tablet PO 650 mg Q6H PRN Administration Mild Pain (Scale Score 1-4) Amlodipine Besylate 10 mg 06/28/20 09:00 07/12/20 10:00 Norvasc PO 10 mg DAILY FELIPE Administration Aspirin 325 mg 06/28/20 09:00 07/12/20 08:34 Aspirin Ec PO 325 mg DAILY FELIPE Administration Atorvastatin Calcium 40 mg 06/28/20 21:00 07/11/20 21:02 Lipitor PO 40 mg HS FELIPE Administration Carvedilol 6.25 mg 06/28/20 09:00 07/12/20 08:34 Coreg PO 6.25 mg Q12HR FELIPE Administration Chlorthalidone 25 mg 06/28/20 09:00 07/12/20 08:35 [place] PO 25 mg DAILY FELIPE Administration Dextrose 12.5 gm 06/28/20 02:14 Dextrose 50% Syringe IV PUSH PRN PRN Hypoglycemia Protocol Enoxaparin Sodium 40 mg 07/08/20 09:00 07/12/20 08:33 Lovenox SUB-Q 40 mg DAILY FELIPE Administration Fluoxetine HCl 20 mg 06/28/20 09:00 07/12/20 08:34 Prozac PO 20 mg DAILY FELIPE Administration Glucagon 1 mg 06/28/20 02:14 Glucagon For Inj IM PRN PRN Hypoglycemia Protocol Glucose 15 gm 06/28/20 02:14 Glutose 15 PO PRN PRN Hypoglycemia Protocol Hydralazine HCl 25 mg 06/28/20 02:11 07/09/20 08:00 Apresoline Tablet PO 25 mg Q6H PRN Administration Hypertension Dextrose 1,000 mls @ 100 mls/hr 06/28/20 02:14 Dextrose 5% 1,000 Ml IVPB PRN PRN Hypoglycemia Protocol Insulin Aspart 10 units 07/11/20 12:00 07/12/20 16:52 Novolog SUB-Q 10 units TIDWM FELIPE Administration Insulin Glargine 30 units 07/11/20 18:00 07/11/20 18:45 Lantus SUB-Q 30 units QPM FELIPE Administration Lisinopril 10 mg 06/28/20 09:00 07/12/20 16:53 Prinivil PO 10 mg BID FELIPE Administration Magnesium Oxide 400 mg 06/28/20 09:00 07/12/20 08:36 Mag-Ox PO 400 mg DAILY FELIPE Administration
[2020-07-12] MEDS: INSULIN GLARGINE (*BKC) 100 UNITS/ML 30 UNITS SUB-Q (18:26)
[2020-07-12 20:23] VITALS: PULSE 100
[2020-07-12] MEDS: ATORVASTATIN 40 MG TABLET PO (20:23)
[2020-07-12 22:00] VITALS: BP 151/88; PULSE 100; RESP 18; TEMP 37.1; O2SAT 98
[2020-07-13 06:00] VITALS: BP 132/74; PULSE 87; RESP 18; TEMP 36.3; O2SAT 96
[2020-07-13 06:22] LABS: Glucose Point of Care 159 (65-105)
[2020-07-13] MEDS: POTASSIUM CHLORIDE 10 MEQ TABLET.ER PO (08:38)
[2020-07-13] MEDS: metFORMIN HCL 500 MG TABLET 1000 MG PO ×2 (08:38→17:36)
[2020-07-13] MEDS: FLUoxetine HCL 20 MG CAPSULE PO (08:38)
[2020-07-13] MEDS: INSULIN ASPART (*BKC) 100 UNITS/ML 10 UNITS SUB-Q ×3 (08:38→17:39)
[2020-07-13 08:39] VITALS: PULSE 86
[2020-07-13] MEDS: lisinopriL 10 MG TABLET PO ×2 (08:39→17:36)
[2020-07-13] MEDS: MAGNESIUM OXIDE 400 MG TABLET PO (08:39)
[2020-07-13] MEDS: ASPIRIN 325 MG ENTERIC TABLET PO (08:39)
[2020-07-13] MEDS: amLODIPine BESYLATE 5 MG TABLET 10 MG PO (08:39)
[2020-07-13] MEDS: carvediloL 6.25 MG TABLET PO ×2 (08:39→21:33)
[2020-07-13] MEDS: ENOXAPARIN 40 MG/0.4 ML SYRINGE SUB-Q (08:40)
[2020-07-13] MEDS: CHLORTHALIDONE 25 MG TABLET PO (08:40)
[2020-07-13 12:03] LABS: Glucose Point of Care 121 (65-105)
[2020-07-13 14:00] VITALS: BP 144/80; PULSE 95; RESP 20; TEMP 36.8; O2SAT 100
[2020-07-13 16:46] LABS: Glucose Point of Care 182 (65-105)
[2020-07-13] MEDS: INSULIN GLARGINE (*BKC) 100 UNITS/ML 30 UNITS SUB-Q (17:39)
[2020-07-13 21:33] VITALS: PULSE 100
[2020-07-13] MEDS: ATORVASTATIN 40 MG TABLET PO (21:33)
[2020-07-13 22:00] VITALS: BP 141/78; PULSE 105; RESP 18; TEMP 37.3; O2SAT 98
[2020-07-13 22:01] LABS: Glucose Point of Care 160 (65-105)
[2020-07-14 06:00] VITALS: BP 145/80; PULSE 88; RESP 20; TEMP 36.9; O2SAT 98
[2020-07-14 06:40] LABS: Glucose Point of Care 181 (65-105)
[2020-07-14] MEDS: metFORMIN HCL 500 MG TABLET 1000 MG PO ×2 (09:08→17:41)
[2020-07-14] MEDS: POTASSIUM CHLORIDE 10 MEQ TABLET.ER PO (09:08)
[2020-07-14] MEDS: INSULIN ASPART (*BKC) 100 UNITS/ML 10 UNITS SUB-Q (09:08)
[2020-07-14 09:09] VITALS: PULSE 88
[2020-07-14] MEDS: amLODIPine BESYLATE 5 MG TABLET 10 MG PO (09:09)
[2020-07-14] MEDS: ASPIRIN 325 MG ENTERIC TABLET PO (09:09)
[2020-07-14] MEDS: carvediloL 6.25 MG TABLET PO ×2 (09:09→19:41)
[2020-07-14] MEDS: CHLORTHALIDONE 25 MG TABLET PO (09:09)
[2020-07-14] MEDS: ENOXAPARIN 40 MG/0.4 ML SYRINGE SUB-Q (09:10)
[2020-07-14] MEDS: MAGNESIUM OXIDE 400 MG TABLET PO (09:10)
[2020-07-14] MEDS: lisinopriL 10 MG TABLET PO ×2 (09:10→17:41)
[2020-07-14] MEDS: FLUoxetine HCL 20 MG CAPSULE PO (09:10)
--- NOTE | 2020-07-14 10:14 | PC.NURSE ---
Swelling to lips is gone,no residual affects, appears normal shape.
[2020-07-14 12:04] LABS: Glucose Point of Care 166 (65-105)
--- NOTE | 2020-07-14 12:21 | WPDNEURORHBP ---
Subjective Date/time seen: 07/14/20 12:21 Interval history: this pleasant 54-year-old woman is here after having had the cerebellar and cerebral stroke which probably affected her left side with the cerebellar ataxia and hemiparesis she is doing fair making very slow progress however she is not a complainer and denies any headache nausea vomiting chest pain shortness of breath fever chills or sore throat Review of Systems Review of Systems: All systems reviewed & are unremarkable except as noted in HPI and below Functional Status Ambulation Ability Ability to Ambulate 10 Feet: Moderate Assistance X 1 Ambulation Assistive Devices: Walker, Wheeled Exam Const: General: comfortable and no acute distress HENMT: General nose exam: Normal nares present Mouth: Yes moist mucous membranes Eyes: General: appearance normal, both eyes and all related structures Neck: Neck: supple and no JVD Resp: Effort & Inspection: normal respiratory effort Auscultation: clear to auscultation bilaterally Cardio: Rate: regular rate Rhythm: regular rhythm GI: GI Palp: Yes Soft to palpation Auscultation: normal bowel sounds Skin: General skin exam: normal color and no rashes or lesions noted Neuro: Other: patient is awake alert well oriented denies any headache nausea vomiting chest pain shortness of breath her neurological deficit is improving slowly rather Extrem: General: normal to inspection Psych: Mental Status: mental status grossly normal Objective Data Vital Signs Vital Signs: Vital Signs - 24 hr 07/13/20 14:00 07/13/20 21:33 07/13/20 22:00 Temperature 36.8 C 37.3 C Pulse Rate 95 100 105 H Respiratory Rate 20 18 Blood Pressure 144/80 H 141/78 H Pulse Oximetry 100 98 07/14/20 06:00 07/14/20 09:09 Temperature 36.9 C Pulse Rate 88 88 Respiratory Rate 20 Blood Pressure 145/80 H Pulse Oximetry 98 Intake/Output Intake/Output: Intake & Output 07/11/20 07/12/20 07/13/20 07/14/20 23:59 23:59 23:59 23:59 Intake Total 480 720 720 240 Balance 480 720 720 240 Meds/Results Medications: Active Medications Generic Name Dose Route Start Last Admin Trade Name Freq PRN Reason Stop Dose Admin Acetaminophen 650 mg 06/28/20 02:11 07/04/20 09:56 Tylenol Tablet PO 650 mg Q6H PRN Administration Mild Pain (Scale Score 1-4) Amlodipine Besylate 10 mg 06/28/20 09:00 07/14/20 09:09 Norvasc PO 10 mg DAILY FELIPE Administration Aspirin 325 mg 06/28/20 09:00 07/14/20 09:09 Aspirin Ec PO 325 mg DAILY FELIPE Administration Atorvastatin Calcium 40 mg 06/28/20 21:00 07/13/20 21:33 Lipitor PO 40 mg HS FELIPE Administration Carvedilol 6.25 mg 06/28/20 09:00 07/14/20 09:09 Coreg PO 6.25 mg Q12HR FELIPE Administration Chlorthalidone 25 mg 06/28/20 09:00 07/14/20 09:09 [place] PO 25 mg DAILY FELIPE Administration Dextrose 12.5 gm 06/28/20 02:14 Dextrose 50% Syringe IV PUSH PRN PRN Hypoglycemia Protocol Enoxaparin Sodium 40 mg 07/08/20 09:00 07/14/20 09:10 Lovenox SUB-Q 40 mg DAILY FELIPE Administration Fluoxetine HCl 20 mg 06/28/20 09:00 07/14/20 09:10 Prozac PO 20 mg DAILY FELIPE Administration Glucagon 1 mg 06/28/20 02:14 Glucagon For Inj IM PRN PRN Hypoglycemia Protocol Glucose 15 gm 06/28/20 02:14 Glutose 15 PO PRN PRN Hypoglycemia Protocol Hydralazine HCl 25 mg 06/28/20 02:11 07/09/20 08:00 Apresoline Tablet PO 25 mg Q6H PRN Administration Hypertension Dextrose 1,000 mls @ 100 mls/hr 06/28/20 02:14 Dextrose 5% 1,000 Ml IVPB PRN PRN Hypoglycemia Protocol Insulin Aspart 12 units 07/14/20 12:00 Novolog SUB-Q TIDWM [facility] Insulin Glargine 30 units 07/11/20 18:00 07/13/20 17:39 Lantus SUB-Q 30 units QPM FELIPE Administration Lisinopril 10 mg 06/28/20 09:00 07/14/20 09:10 Prinivil PO 10 mg BID FELIPE Administr
[2020-07-14] MEDS: INSULIN ASPART (*BKC) 100 UNITS/ML 12 UNITS SUB-Q (12:33)
[2020-07-14 14:00] VITALS: BP 130/73; PULSE 92; RESP 20; TEMP 36.7; O2SAT 97
[2020-07-14 17:08] LABS: Glucose Point of Care 137 (65-105)
--- NOTE | 2020-07-14 17:52 | PC.NURSE ---
Blood sugar at 5pm 137, placed call to Dr. Gilmore regarding and to hold her Novolog this evening and recheck glucose at HS before giving Lantus; and if under 175, do not give. Noting had brought some food in prior to glucose check, and also had changed Novolog to 12 units from 10.
[2020-07-14 19:41] VITALS: PULSE 88
[2020-07-14] MEDS: ATORVASTATIN 40 MG TABLET PO (19:42)
[2020-07-14 20:07] LABS: Glucose Point of Care 161 (65-105)
[2020-07-14 22:00] VITALS: BP 131/71; PULSE 97; RESP 20; TEMP 36.3; O2SAT 94
[2020-07-15 04:42] LABS: Basophils Percent Auto 0.5 % (0.2-1.2); Eosinophils Absolute Auto 0.1 K/mm3 (0-0.3); Eosinophils Percent Auto 1.5 % (0-4.4); Hematocrit 39.4 % (37.0-47.0); Hemoglobin 13.3 g/dL (12.0-15.0); Immature Granulocyte Absolute 0.02 K/mm3 (0.00-0.031); Immature Granulocyte Percent A 0.2 % (0-0.5); Lymphocytes Absolute Auto 2.05 K/mm3 (0.9-3.2); Lymphocytes Percent Auto 23.9 % (18.3-44.2); Mean Corpuscular HGB Conc 33.8 g/dl (32-36); Mean Corpuscular Hemoglobin 27.7 pg (26-34); Mean Corpuscular Volume 81.9 fl (80-100); Mean Platelet Volume 9.8 fl (7.4-10.4); Monocytes Absolute Auto 0.7 K/mm3 (0.1-0.6); Monocytes Percent Auto 8.6 % (2.6-8.5); Neutrophils Absolute Auto 5.6 K/mm3 (1.3-6.7); Neutrophils Percent Auto 65.3 % (45.5-73.1); Platelet Count Result 323 k/mm3 (150-375); Red Blood Count 4.81 M/mm3 (4.2-5.4); Red Cell Distribution Width 13.6 % (11.5-14.5); White Blood Count 8.6 K/mm3 (4.5-10.0)
[2020-07-15 06:00] VITALS: BP 152/76; PULSE 83; RESP 18; TEMP 36.6; O2SAT 99
[2020-07-15 06:45] LABS: Glucose Point of Care 165 (65-105)
[2020-07-15] MEDS: INSULIN ASPART (*BKC) 100 UNITS/ML 12 UNITS SUB-Q (09:48)
[2020-07-15] MEDS: amLODIPine BESYLATE 5 MG TABLET 10 MG PO (09:52)
[2020-07-15] MEDS: metFORMIN HCL 500 MG TABLET 1000 MG PO ×2 (09:52→18:04)
[2020-07-15] MEDS: POTASSIUM CHLORIDE 10 MEQ TABLET.ER PO (09:52)
[2020-07-15 09:53] VITALS: PULSE 83
[2020-07-15] MEDS: MAGNESIUM OXIDE 400 MG TABLET PO (09:53)
[2020-07-15] MEDS: carvediloL 6.25 MG TABLET PO ×2 (09:53→20:38)
[2020-07-15] MEDS: lisinopriL 10 MG TABLET PO ×2 (09:53→18:04)
[2020-07-15] MEDS: FLUoxetine HCL 20 MG CAPSULE PO (09:53)
[2020-07-15] MEDS: ENOXAPARIN 40 MG/0.4 ML SYRINGE SUB-Q (09:53)
[2020-07-15] MEDS: ASPIRIN 325 MG ENTERIC TABLET PO (09:53)
[2020-07-15] MEDS: CHLORTHALIDONE 25 MG TABLET PO (09:53)
[2020-07-15 12:07] LABS: Glucose Point of Care 192 (65-105)
--- NOTE | 2020-07-15 12:30 | PCDIET ---
Nutrition Follow-Up Complete: Nutrition Diagnosis: Food and nutrition related knowledge deficit related to no prior nutrition education as evidenced by patient report and new diagnoses of CVA. Nutrition Goal: Patient to consume 75% or more of meals Goal met. Patient consumed just above 75% of meals, on average, since last review. Patient on phone at time of visit, but stated everything is going fine. Last recorded weight is 91.2 kg. Recommend obtaining new weight. Bowel Motility: Last BM on 07/14/20, per nursing flowsheet. Labs Reviewed: Glu (165) Meds Noted: Hydralazine, Novolog, Lantus, Lisinopril, Mag-Ox, Glucophage, KCl Additional Notes: Insulin being decreased due to lower blood sugars. Plan for discharge tomorrow noted. Will continue to monitor with same goal if patient remains in house. Nutrition Monitoring and Evaluation: Follow up in 7 days.
[2020-07-15] MEDS: INSULIN ASPART (*BKC) 100 UNITS/ML 7 UNITS SUB-Q (12:38)
--- NOTE | 2020-07-15 13:10 | WPDNEURORHBP ---
Subjective Date/time seen: 07/15/20 13:10 Interval history: this 54-year-old woman is here after having had a stroke with left-sided cerebellar signs and cerebral signs she is making some progress and walked about 25 feet the physical therapy which is much better than the weekend she did fair with the occupational therapy we are discuss we are in discussion rather with the nurse informatics educator. The patient is planned to have the hospital bed and other DME is at home by tomorrow and discharge planning is for tomorrow Review of Systems Review of Systems: All systems reviewed & are unremarkable except as noted in HPI and below Functional Status Ambulation Ability Ability to Ambulate 10 Feet: Moderate Assistance X 1 Ambulation Assistive Devices: Walker, Wheeled Exam Const: General: comfortable and no acute distress HENMT: General nose exam: Normal nares present Mouth: Yes moist mucous membranes Eyes: General: appearance normal, both eyes and all related structures Neck: Neck: supple and no JVD Resp: Effort & Inspection: normal respiratory effort Auscultation: clear to auscultation bilaterally Cardio: Rate: regular rate Rhythm: regular rhythm GI: GI Palp: Yes Soft to palpation Auscultation: normal bowel sounds Skin: General skin exam: normal color and no rashes or lesions noted Neuro: Other: patient is awake and alert and well oriented follows all commands with left-sided signs cerebral and cerebellar in nature still needing significant assistance Extrem: General: normal to inspection Psych: Mental Status: mental status grossly normal Objective Data Vital Signs Vital Signs: Vital Signs - 24 hr 07/14/20 14:00 07/14/20 19:41 07/14/20 22:00 Temperature 36.7 C 36.3 C L Pulse Rate 92 88 97 Respiratory Rate 20 20 Blood Pressure 130/73 131/71 Pulse Oximetry 97 94 07/15/20 06:00 07/15/20 09:53 Temperature 36.6 C Pulse Rate 83 83 Respiratory Rate 18 Blood Pressure 152/76 H Pulse Oximetry 99 Intake/Output Intake/Output: Intake & Output 07/12/20 07/13/20 07/14/20 07/15/20 23:59 23:59 23:59 23:59 Intake Total 720 720 480 720 Balance 720 720 480 720 Meds/Results Medications: Active Medications Generic Name Dose Route Start Last Admin Trade Name Freq PRN Reason Stop Dose Admin Acetaminophen 650 mg 06/28/20 02:11 07/04/20 09:56 Tylenol Tablet PO 650 mg Q6H PRN Administration Mild Pain (Scale Score 1-4) Amlodipine Besylate 10 mg 06/28/20 09:00 07/15/20 09:52 Norvasc PO 10 mg DAILY FELIPE Administration Aspirin 325 mg 06/28/20 09:00 07/15/20 09:53 Aspirin Ec PO 325 mg DAILY FELIPE Administration Atorvastatin Calcium 40 mg 06/28/20 21:00 07/14/20 19:42 Lipitor PO 40 mg HS FELIPE Administration Carvedilol 6.25 mg 06/28/20 09:00 07/15/20 09:53 Coreg PO 6.25 mg Q12HR FELIPE Administration Chlorthalidone 25 mg 06/28/20 09:00 07/15/20 09:53 [place] PO 25 mg DAILY FELIPE Administration Dextrose 12.5 gm 06/28/20 02:14 Dextrose 50% Syringe IV PUSH PRN PRN Hypoglycemia Protocol Enoxaparin Sodium 40 mg 07/08/20 09:00 07/15/20 09:53 Lovenox SUB-Q 40 mg DAILY FELIPE Administration Fluoxetine HCl 20 mg 06/28/20 09:00 07/15/20 09:53 Prozac PO 20 mg DAILY FELIPE Administration Glucagon 1 mg 06/28/20 02:14 Glucagon For Inj IM PRN PRN Hypoglycemia Protocol Glucose 15 gm 06/28/20 02:14 Glutose 15 PO PRN PRN Hypoglycemia Protocol Hydralazine HCl 25 mg 06/28/20 02:11 07/09/20 08:00 Apresoline Tablet PO 25 mg Q6H PRN Administration Hypertension Dextrose 1,000 mls @ 100 mls/hr 06/28/20 02:14 Dextrose 5% 1,000 Ml IVPB PRN PRN Hypoglycemia Protocol Insulin Aspart 7 units 07/15/20 12:00 07/15/20 12:38 Novolog SUB-Q 7 units TIDWM FELIPE Administration Insulin Glargine 22 units 07/15/20 18:00 Lantus SUB-Q Q
[2020-07-15 14:00] VITALS: BP 127/63; PULSE 90; RESP 20; TEMP 36.6; O2SAT 100
[2020-07-15 17:03] LABS: Glucose Point of Care 117 (65-105)
[2020-07-15 18:03] LABS: Glucose Point of Care 148 (65-105)
[2020-07-15 20:00] VITALS: PULSE 95; RESP 18; O2SAT 99
[2020-07-15 20:38] VITALS: PULSE 95
[2020-07-15] MEDS: ATORVASTATIN 40 MG TABLET PO (20:39)
[2020-07-15 20:44] LABS: Glucose Point of Care 117 (65-105)
[2020-07-15 20:58] VITALS: BP 130/52; PULSE 95; RESP 18; TEMP 36.9; O2SAT 99
[2020-07-16 04:59] VITALS: BP 136/75; PULSE 96; RESP 20; TEMP 36.3; O2SAT 100
[2020-07-16 07:01] LABS: Glucose Point of Care 175 (65-105)
[2020-07-16] MEDS: INSULIN ASPART (*BKC) 100 UNITS/ML 7 UNITS SUB-Q ×2 (07:43→12:04)
[2020-07-16] MEDS: POTASSIUM CHLORIDE 10 MEQ TABLET.ER PO (08:51)
[2020-07-16] MEDS: metFORMIN HCL 500 MG TABLET 1000 MG PO (08:51)
[2020-07-16] MEDS: ASPIRIN 325 MG ENTERIC TABLET PO (08:51)
[2020-07-16] MEDS: amLODIPine BESYLATE 5 MG TABLET 10 MG PO (08:51)
[2020-07-16 08:52] VITALS: PULSE 88
[2020-07-16] MEDS: ENOXAPARIN 40 MG/0.4 ML SYRINGE SUB-Q (08:52)
[2020-07-16] MEDS: lisinopriL 10 MG TABLET PO (08:52)
[2020-07-16] MEDS: MAGNESIUM OXIDE 400 MG TABLET PO (08:52)
[2020-07-16] MEDS: FLUoxetine HCL 20 MG CAPSULE PO (08:52)
[2020-07-16] MEDS: carvediloL 6.25 MG TABLET PO (08:52)
[2020-07-16] MEDS: CHLORTHALIDONE 25 MG TABLET PO (08:52)
[2020-07-16 10:40] VITALS: BP 135/79; PULSE 94; RESP 20; TEMP 36; O2SAT 97
[2020-07-16 11:18] VITALS: BP 135/79; PULSE 94; RESP 20; TEMP 36; O2SAT 97
--- NOTE | 2020-07-16 12:02 | WPDNEURORHBP ---
Subjective Date/time seen: 07/16/20 12:02 Interval history: this 52 T old woman is here after having had the stroke which has left her with left-sided cerebellar and cerebral signs she supposed to go home today and is really very eager to she fell while getting the occupational therapy however did not hurt herself denies any headache neck pain chest pain spinal pain leg pain or back pain denies any shortness of breath fever chills sore throat headache and loss of consciousness Review of Systems Review of Systems: All systems reviewed & are unremarkable except as noted in HPI and below Functional Status Ambulation Ability Ability to Ambulate 10 Feet: Moderate Assistance X 1 Ambulation Assistive Devices: Walker, Wheeled Exam Const: General: comfortable and no acute distress HENMT: General nose exam: Normal nares present Mouth: Yes moist mucous membranes Eyes: General: appearance normal, both eyes and all related structures Neck: Neck: supple and no JVD Resp: Effort & Inspection: normal respiratory effort Auscultation: clear to auscultation bilaterally Cardio: Rate: regular rate Rhythm: regular rhythm GI: GI Palp: Yes Soft to palpation Auscultation: normal bowel sounds Skin: General skin exam: normal color and no rashes or lesions noted Neuro: Other: patient is awake alert will oriented follows all commands she is in good spirits and going home on looking forward to she has several daughters at least 2 of them are available around her and they will take care for her left-sided neurological signs are improving but still needing assistance Extrem: General: normal to inspection Psych: Mental Status: mental status grossly normal Objective Data Vital Signs Vital Signs: Vital Signs - 24 hr 07/15/20 14:00 07/15/20 20:00 07/15/20 20:38 Temperature 36.6 C Pulse Rate 90 95 95 Respiratory Rate 20 18 Blood Pressure 127/63 Pulse Oximetry 100 99 07/15/20 20:58 07/16/20 04:59 07/16/20 08:52 Temperature 36.9 C 36.3 C L Pulse Rate 95 96 88 Respiratory Rate 18 20 Blood Pressure 130/52 L 136/75 Pulse Oximetry 99 100 07/16/20 11:18 Temperature 36.0 C L Pulse Rate 94 Respiratory Rate 20 Blood Pressure 135/79 Pulse Oximetry 97 Intake/Output Intake/Output: Intake & Output 07/13/20 07/14/20 07/15/20 07/16/20 23:59 23:59 23:59 23:59 Intake Total 720 480 960 240 Balance 720 480 960 240 Meds/Results Medications: Active Medications Generic Name Dose Route Start Last Admin Trade Name Freq PRN Reason Stop Dose Admin Acetaminophen 650 mg 06/28/20 02:11 07/04/20 09:56 Tylenol Tablet PO 650 mg Q6H PRN Administration Mild Pain (Scale Score 1-4) Amlodipine Besylate 10 mg 06/28/20 09:00 07/16/20 08:51 Norvasc PO 10 mg DAILY FELIPE Administration Aspirin 325 mg 06/28/20 09:00 07/16/20 08:51 Aspirin Ec PO 325 mg DAILY FELIPE Administration Atorvastatin Calcium 40 mg 06/28/20 21:00 07/15/20 20:39 Lipitor PO 40 mg HS FELIPE Administration Carvedilol 6.25 mg 06/28/20 09:00 07/16/20 08:52 Coreg PO 6.25 mg Q12HR FELIPE Administration Chlorthalidone 25 mg 06/28/20 09:00 07/16/20 08:52 [place]gro[place] PO 25 mg DAILY FELIPE Administration Dextrose 12.5 gm 06/28/20 02:14 Dextrose 50% Syringe IV PUSH PRN PRN Hypoglycemia Protocol Enoxaparin Sodium 40 mg 07/08/20 09:00 07/16/20 08:52 Lovenox SUB-Q 40 mg DAILY FELIPE Administration Fluoxetine HCl 20 mg 06/28/20 09:00 07/16/20 08:52 Prozac PO 20 mg DAILY FELIPE Administration Glucagon 1 mg 06/28/20 02:14 Glucagon For Inj IM PRN PRN Hypoglycemia Protocol Glucose 15 gm 06/28/20 02:14 Glutose 15 PO PRN PRN Hypoglycemia Protocol Hydralazine HCl 25 mg 06/28/20 02:11 07/09/20 08:00 Apresoline Tablet PO 25 mg Q6H PRN Administration Hypertension Dextrose 1,000 mls @ 100 mls/hr 06/28/20 02:14 Dextrose
[2020-07-16 12:32] LABS: Glucose Point of Care 200 (65-105)
--- NOTE | 2020-07-18 12:07 | PM.DS ---
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: Code(s): I67.9 - Cerebrovascular disease, unspecified; G46.7 - Other lacunar syndromes Status: Acute (2) Left hemiparesis: Code(s): G81.94 - Hemiplegia, unspecified affecting left nondominant side Status: Acute (3) Obesity: Code(s): E66.9 - Obesity, unspecified Status: Acute (4) Diabetes mellitus: Code(s): E11.9 - Type 2 diabetes mellitus without complications Status: Acute (5) Endometriosis: Code(s): N80.9 - Endometriosis, unspecified Status: Acute (6) Migraine: Code(s): G43.909 - Migraine, unspecified, not intractable, without status migrainosus Status: Acute (7) Hypertension: Code(s): I10 - Essential (primary) hypertension Status: Acute (8) Ischemic stroke of frontal lobe: Code(s): I63.9 - Cerebral infarction, unspecified Status: Acute (9) Cerebellar stroke: Code(s): I63.9 - Cerebral infarction, unspecified Status: Acute DS: Summary Hospital Course Reason for hospitalization: this 54-year-old woman was admitted after having had cerebellar stroke with affected her left side and also frontal lobe a stroke which affected her left side with combined neurological deficit of cerebellar signs and cerebral signs she improved to a certain degree and was able to be discharged home with home health to follow to her 's care she received extensive PT OT and gait training in the medical management of her underlying medical issues and was able to achieve the following independent measures Hospital Course: eating setup, oral hygiene independent, toileting supervision, bathing supervision, upper body dressing setup, lower body dressing supervision, footwear independent, rolling in bed independent, sitting to lying independent, lying to sitting independent, sit to stand partial assistance, chair transfers supervision, toilet transfers supervision, car transfers partial assistance, walking 10 feet partial assistance, walking 50 feet with 2 turns patient was unable to walking 150 feet patient was unable to walking 10 feet uneven surfaces partial assistance, carb or setup supervision, 4 step supervision, 12 status patient was unable to, picker / packer objects partial assistance, wheelchair 50 feet supervision, wheelchair 150 feet supervision, patient was sent home with home health 2 falls were recorded without any injury to the patient 1 was on the day of discharge when I examined this patient in the bathroom when she slipped and did not really hurt herself and denied any headache nausea vomiting chest pain shortness of breath loss of consciousness or headache fever chills sore throat Time Spent with Patient Time attestation: Total time spent providing and/or coordinating discharge services: Exam Const: General: comfortable and no acute distress HENMT: General nose exam: Normal nares present Mouth: Yes dry mucous membranes Eyes: General: appearance normal, both eyes and all related structures Neck: Neck: supple and no JVD Resp: Effort & Inspection: normal respiratory effort Auscultation: clear to auscultation bilaterally Cardio: Rate: regular rate Rhythm: regular rhythm GI: GI Palp: Yes Soft to palpation Auscultation: normal bowel sounds Skin: General skin exam: normal color and no rashes or lesions noted Neuro: Other: patient is awake alert well oriented follows all commands quite well not any distress and improved left-sided weakness however still needing PT OT and gait training to further improve her neurological status Extrem: General: normal to inspection Psych: Mental Status: mental status grossly normal Discharge Plan Discharge Attending physician on discharge: Yfn Gilmore Discharging Clinician: Yfn Gilmore Anticipated Discharge Date
== END 2020-07-16 14:55 | disposition home health service (06) | DRG 57 ==
PROVIDERS: Admitting Provider Psychiatry & Neurology Neurology; Visit Provider Psychiatry & Neurology Neurology
DX: I69.354 Hemiplegia and hemiparesis following cerebral infarction affecting left non-dominant side (principal); I69.398 Other sequelae of cerebral infarction; I69.311 Memory deficit following cerebral infarction; H53.40 Unspecified visual field defects; R41.3 Other amnesia; E11.65 Type 2 diabetes mellitus with hyperglycemia; E66.9 Obesity, unspecified; E78.5 Hyperlipidemia, unspecified; G43.909 Migraine, unspecified, not intractable, without status migrainosus; I10 Essential (primary) hypertension; N80.9 Endometriosis, unspecified; Z79.4 Long term (current) use of insulin; Z68.36 Body mass index [BMI] 36.0-36.9, adult
CPT/HCPCS: 36415; 70450; 72128; 80048; 80061; 83036; 85025; 92507; 92523; 97110; 97112; 97116; 97129; 97130; 97162; 97164; 97166; 97530; 97535; 97542; A9270; J1650; J1815